=== PATIENT | male | born 1955 | race American Indian/Alaskan Native ===

== ENCOUNTER 2017-12-10 08:26 | Inpatient (IN) | payer MEDICARE ==
[2017-12-10] MEDS ORDERED: NACL 0.9% 1000 ML 1,000 ML IV ONE ×2 (09:08→12:13)
[2017-12-10] MEDS ORDERED: ROCEPHIN/NS 1 GM/50 ML 1 GM/50 ML BAG IV ONE (09:26)
[2017-12-10] MEDS ORDERED: ZOSYN/NS 3.375GM/50ML 3.375 GM/50 ML BAG IV ONE (09:40)
--- NOTE | 2017-12-10 09:46 | Emergency Department Report ---
ED General Adult HPI - General Chief complaint: Pain General Stated complaint: PAIN/BLOODY URINE Time Seen by Provider: 12/10/17 08:48 Source: EMS Mode of arrival: Stretcher Limitations: No Limitations - History of Present Illness Initial comments: This is a 62-year-old diabetic man who presents due to inability to empty his bladder. He has urgency and apparent urinary retention. He is able to tell me that he just was discharged from [facility] on 12/08 and was admitted on . He did have a Hagan catheter during this hospitalization. He states a CT examination showed a bladder tumor. He states he was never seen by a urologist. His Hagan catheter was removed. The above problems ensued. At the time my initial encounter the patient was very desirous of urination. He obviously was suffering from retention. The nurse was directed to place a Hagan catheter. Patient after the Hagan catheter was able to give more history. It seems that he was seen by urologist at [facility]. He was told to follow-up as an outpatient. He states he did appeal his discharge. His Hagan catheter was removed prior to discharge. -: days(s) Location: abdomen (suprapubic) Radiation: non-radiation Severity scale (0 -10): 10 Quality: aching Consistency: constant Improves with: none Worsens with: none Associated Symptoms: denies other symptoms Treatments Prior to Arrival: none - Related Data Allergies Allergy/AdvReac Type Severity Reaction Status Date / Time No Known Allergies Allergy Unverified 12/10/17 09:01 ED Review of Systems ROS: Stated complaint: PAIN/BLOODY URINE Other details as noted in HPI ED Past Medical Hx - Past Medical History Previous Medical History?: Yes Hx Hypertension: Yes (1992) Hx Diabetes: Yes Additional medical history: "enlarged heart," neuropathy - Surgical History Past Surgical History?: Yes Additional Surgical History: bilateral feet surgery with bone removal; right index finger amputation; 2nd left toe ampuation - Social History Smoking Status: Former Smoker Substance Use Type: None ED Physical Exam - General Limitations: Physical Limitation General appearance: in distress (needing to urinate), obese - Head Head exam: Present: atraumatic, normocephalic - Eye Eye exam: Present: normal appearance. Absent: scleral icterus - ENT ENT exam: Present: mucous membranes moist - Neck Neck exam: Present: normal inspection. Absent: tenderness, meningismus - Respiratory Respiratory exam: Present: normal lung sounds bilaterally. Absent: respiratory distress - Cardiovascular Cardiovascular Exam: Present: regular rate, normal rhythm. Absent: systolic murmur, diastolic murmur, rubs, gallop - Extremities Exam Extremities exam: Present: other (dressing from recent amputation. Other amputation sites clean.) - Back Exam Back exam: Present: normal inspection. Absent: CVA tenderness (R), CVA tenderness (L) - Neurological Exam Neurological exam: Present: oriented X3, CN II-XII intact. Absent: motor sensory deficit (no acute focal deficit) - Psychiatric Psychiatric exam: Present: normal mood, anxious ED Course Vital Signs 12/10/17 08:43 Temperature 97.7 F Pulse Rate 92 H Respiratory 20 Rate Blood Pressure 139/69 Blood Pressure 138/69 [Right] O2 Sat by Pulse 98 Oximetry - Reevaluation(s) Reevaluation #1: The patient is given a fluid bolus for sepsis and prerenal azotemia. It is presumed that his source is urinary. He is diabetic. Zosyn and vancomycin were given empirically prior. Urinalysis is yet pending. A CT of the abdomen showed cholelithiasis probably but no intra-abdominal inflammatory process. There was blood in the bladder. The patient will be admitted to the hospitalist service for further care and evaluation. 12/10/17 12:13 ED Medical Decision Making - Lab Data Result diagrams: 12/10/17 09:40 12/10/17 09:40 Laboratory Results - last 24 hr 12/10/17 12/10/17 12/10/17 09:40 09:40 09:40 WBC 19.0 H RBC 4.74 Hgb 12.1 Hct 37.3 MCV 79 L MCH 26 L MCHC 32 RDW 17.3 H Plt Count 526 H Lymph % (Auto) 20.0 [place] % (Auto) 7.1 Eos % (Auto) 0.4 Baso % (Auto) 1.1 Lymph # 3.8 [place] # 1.3 H Eos # 0.1 Baso # 0.2 H Seg Neutrophils % 71.4 H Seg Neutrophils # 13.6 H PT 13.1 INR 0.95 APTT 29.3 Sodium 139 Potassium 4.8 Chloride 99.3 Carbon Dioxide 23 Anion Gap 22 BUN 61 H Creatinine 2.1 H Estimated GFR 39 BUN/Creatinine Ratio 29 Glucose 71 L Lactic Acid Calcium 10.0 Magnesium Total Bilirubin 0.40 AST 38 ALT 31 Alkaline Phosphatase 93 Total Protein 9.2 H Albumin 4.6 Albumin/Globulin Ratio 1.0 12/10/17 12/10/17 09:40 09:40 WBC RBC Hgb Hct MCV MCH MCHC RDW Plt Count Lymph % (Auto) [place] % (Auto) Eos % (Auto) Baso % (Auto) Lymph # [place] # Eos # Baso # Seg Neutrophils % Seg Neutrophils # PT INR APTT Sodium Potassium Chloride Carbon Dioxide Anion Gap BUN Creatinine Estimated GFR BUN/Creatinine Ratio Glucose Lactic Acid 2.70 H* Calcium Magnesium 2.20 Total Bilirubin AST ALT Alkaline Phosphatase Total Protein Albumin Albumin/Globulin Ratio Laboratory Results - last 24 hr 12/10/17 12/10/17 12/10/17 09:40 09:40 09:40 WBC 19.0 H RBC 4.74 Hgb 12.1 Hct 37.3 MCV 79 L MCH 26 L MCHC 32 RDW 17.3 H Plt Count 526 H Lymph % (Auto) 20.0 [place] % (Auto) 7.1 Eos % (Auto) 0.4 Baso % (Auto) 1.1 Lymph # 3.8 [place] # 1.3 H Eos # 0.1 Baso # 0.2 H Seg Neutrophils % 71.4 H Seg Neutrophils # 13.6 H PT 13.1 INR 0.95 APTT 29.3 Sodium 139 Potassium 4.8 Chloride 99.3 Carbon Dioxide 23 Anion Gap 22 BUN 61 H Creatinine 2.1 H Estimated GFR 39 BUN/Creatinine Ratio 29 Glucose 71 L Lactic Acid Calcium 10.0 Magnesium Total Bilirubin 0.40 AST 38 ALT 31 Alkaline Phosphatase 93 Total Protein 9.2 H Albumin 4.6 Albumin/Globulin Ratio 1.0 12/10/17 12/10/17 09:40 09:40 WBC RBC Hgb Hct MCV MCH MCHC RDW Plt Count Lymph % (Auto) [place] % (Auto) Eos % (Auto) Baso % (Auto) Lymph # [place] # Eos # Baso # Seg Neutrophils % Seg Neutrophils # PT INR APTT Sodium Potassium Chloride Carbon Dioxide Anion Gap BUN Creatinine Estimated GFR BUN/Creatinine Ratio Glucose Lactic Acid 2.70 H* Calcium Magnesium 2.20 Total Bilirubin AST ALT Alkaline Phosphatase Total Protein Albumin Albumin/Globulin Ratio Critical Care Time: Yes Critical care time in (mins) excluding proc time.: 55 Critical care attestation.: If time is entered above; I have spent that time in minutes in the direct care of this critically ill patient, excluding procedure time. ED Disposition Clinical Impression: Prerenal azotemia, Acute renal injury Sepsis Qualifiers: Sepsis type: sepsis due to unspecified organism Qualified Code(s): A41.9 - Sepsis, unspecified organism Hematuria Qualifiers: Hematuria type: gross Qualified Code(s): R31.0 - Gross hematuria Type 2 diabetes mellitus Qualifiers: Diabetes mellitus skilled nursing insulin use: without marine oil terminal superintendent use Diabetes mellitus complication status: without complication Qualified Code(s): E11.9 - Type 2 diabetes mellitus without complications Disposition: 09 OP ADMIT IP TO THIS HOSP Is pt being admited?: Yes Does the pt Need Aspirin: Yes Condition: Stable Instructions: Diabetes Mellitus Type 2 in Adults (ED) Time of Disposition: 12:15
[2017-12-10] MEDS ORDERED: VANCOMYCIN 2,000 MG in NACL 0.9% 500 ML 500 ML IV ONE (10:00)
[2017-12-10] MEDS ORDERED: VANCOMYCIN PHARMACY TO DOSE IV SCH (10:00)
[2017-12-10 10:05] LABS: Basophils # (Auto) 0.2 K/mm3 (0.0-0.1); Basophils % (Auto) 1.1 % (0.0-1.8); Eosinophils # (Auto) 0.1 K/mm3 (0.0-0.4); Eosinophils % (Auto) 0.4 % (0.0-4.3); Hematocrit 37.3 % (35.5-45.6); Hemoglobin 12.1 gm/dl (11.8-15.2); Lymphocytes # (Auto) 3.8 K/mm3 (1.2-5.4); Mean Corpuscular HGB Conc 32 % (32-34); Mean Corpuscular Volume 79 fl (84-94); Monocytes # (Auto) 1.3 K/mm3 (0.0-0.8); Monocytes % (Auto) 7.1 % (0.0-7.3); Platelet Count 526 K/mm3 (140-440); Red Blood Count 4.74 M/mm3 (3.65-5.03); Red Cell Distribution Width 17.3 % (13.2-15.2)
[2017-12-10 10:15] LABS: INR 0.95 (0.87-1.13)
[2017-12-10 10:16] LABS: Partial Thromboplastin Time 29.3 Sec. (24.2-36.6)
[2017-12-10] MEDS ORDERED: ZOFRAN IV ONE ×2 (10:23→10:34)
[2017-12-10] MEDS ORDERED: MORPHINE IV ONE ×2 (10:23→10:34)
[2017-12-10] MEDS ORDERED: ZOFRAN ONE (10:26)
[2017-12-10] MEDS ORDERED: MORPHINE ONE (10:26)
[2017-12-10 10:34] LABS: Mean Corpuscular Hemoglobin 26 pg (28-32)
--- NOTE | 2017-12-10 10:36 | Cat Scan Report ---
FINAL REPORT EXAM: CT ABDOMEN PELVIS WO CON HISTORY: abd pain TECHNIQUE: Noncontrast CT of the abdomen and pelvis performed. No IV or gastrointestinal contrast was administered. PRIORS: None. FINDINGS: There is some dependent atelectasis at the lung bases. Within the limitations of a non-enhanced study, the visualized liver, spleen, pancreas, adrenal glands and kidneys demonstrate no significant abnormalities. There are no renal stones, ureteral stones, hydronephrosis, or evidence of obstructive uropathy. There is likely cholelithiasis. There are aortoiliac atherosclerotic calcifications. There is no abdominal aortic aneurysm. There is no evidence of intestinal obstruction. The appendix is normal. There are no abnormal fluid collections seen. There is blood seen within the bladder. Source is unknown. No abnormal pelvic mass or fluid collections seen. IMPRESSION: There is blood in the bladder. Source unknown. There is no nephrolithiasis, hydronephrosis or other evidence for acute obstructive uropathy. Probable cholelithiasis.
[2017-12-10 10:46] LABS: Albumin 4.6 g/dL (3.9-5)
[2017-12-10] MEDS ORDERED: NACL 0.9% IR SCH (11:00)
[2017-12-10] MEDS: ZOSYN/NS 3.375GM/50ML 3.375 GM/50 ML BAG IV SCH ×2 (11:02→18:17)
[2017-12-10 12:14] LABS: Bilirubin,Urine NEG (Negative); Blood,Urine MOD (Negative); Color,Urine Red (Yellow); Urobilinogen,Urine < 2.0 mg/dL (<2.0)
[2017-12-10] MEDS ORDERED: BABY ASPIRIN PO ONE (12:16)
[2017-12-10 12:44] LABS: RBC,Urine > 182.0 /HPF (0.0-6.0)
--- NOTE | 2017-12-10 13:08 | XRay Report ---
FINAL REPORT EXAM: XR CHEST 1V AP HISTORY: hypertension TECHNIQUE: Frontal chest x-ray Comparison: Lung bases from CT same day FINDINGS: Heart size is upper limits normal with left ventricular configuration compatible with systemic hypertension. There are fine reticular infiltrates bilaterally. No definite pleural effusion. IMPRESSION: Left ventricular configuration of the heart compatible with systemic hypertension. Fine reticular infiltrates bilaterally best appreciated on the CT, uncertain chronicity. Recommend follow-up two view chest.
--- NOTE | 2017-12-10 16:57 | History and Physical Report ---
History of Present Illness Date of examination: 12/10/17 Date of admission: 12/10/17 13:51 Chief complaint: Chief complaint: Blood in the urine History of present illness: History of Present Illness: 62-year-old black male with history of hypertension insulin-dependent diabetes coronary artery disease and hyperlipidemia comes in for difficulty urinating and severe pain in the suprapubic region. Patient says that he is unable to empty his bladder. Patient was recently discharged on from [facility] after being treated for urinary retention. Patient had a Hagan catheter during his Hospitalization. Also patient was diagnosed with a bladder tumor on CT examination. Patient was never seen by a urologist. Patient's Hagan catheter was removed. Patient continued to have difficulty urinating and today noticed to have blood in the urine. Patient says the blood in the urine may be there for last 48 hours. No fever no chills. Pain is about 6 on a scale of 1-10 in the suprapubic region. Past Medical History Previous Medical History?: Yes Hx Hypertension: Yes (1992) Hx Diabetes: Yes Additional medical history: "enlarged heart," neuropathy - Surgical History Past Surgical History?: Yes Additional Surgical History: bilateral feet surgery with bone removal; right index finger amputation; 2nd left toe ampuation - Social History Smoking Status: Former Smoker Substance Use Type: None Family history Hypertension Review of Systems ROS: Stated complaint: PAIN/BLOODY URINE Other details as noted in HPI Medications and Allergies Allergies Allergy/AdvReac Type Severity Reaction Status Date / Time No Known Allergies Allergy Unverified 12/10/17 09:01 Home Medications Medication Instructions Recorded Confirmed Last Taken Type Allopurinol 300 mg PO DAILY 12/10/17 12/10/17 Unknown History Aspirin [Aspir-Low] 81 mg PO DAILY 12/10/17 12/10/17 12/10/17 History AtorvaSTATin [Lipitor] 80 mg PO DAILY 12/10/17 12/10/17 Unknown History Carvedilol [Coreg] 12.5 mg PO BID 12/10/17 12/10/17 Unknown History Clopidogrel [Plavix] 75 mg PO BID 12/10/17 12/10/17 Unknown History Ferrous Sulfate [Iron] 325 mg PO BID 12/10/17 12/10/17 Unknown History Furosemide [Lasix TAB] 40 mg PO DAILY 12/10/17 12/10/17 Unknown History Gabapentin [Neurontin] 600 mg PO TID 12/10/17 12/10/17 Unknown History Humulin R U-500 Kwikpen 50 units SUB-Q 12/10/17 12/10/17 Unknown History Insulin Glargine,Hum.rec.anlog 10 units SUB-Q QHS 12/10/17 12/10/17 Unknown History [Lantus] Insulin Regular, Human [HumuLIN R] 50 units SUB-Q 12/10/17 12/10/17 Unknown History Losartan/Hydrochlorothiazide 1 tab PO DAILY 12/10/17 12/10/17 Unknown History [Losartan-Hctz 100-25 mg Tab] Nitroglycerin [Nitrostat] 0.4 mg SL Q5M PRN 12/10/17 12/10/17 Unknown History Nortriptyline [Pamelor] 50 mg PO QHS 12/10/17 12/10/17 Unknown History [place]-3 Acid Ethyl Esters [Lovaza] 1 gram PO BID 12/10/17 12/10/17 Unknown History Sennosides [Senna] 2 tab PO BID PRN 12/10/17 12/10/17 Unknown History True Metrix Glucose Test Strip 4 strip QID 12/10/17 12/10/17 Unknown History Active Meds: Active Medications Sodium Chloride (Nacl 0.9% 1000 Ml) 1,000 mls @ 125 mls/hr IV ONCE ONE Stop: 12/10/17 17:07 Last Admin: 12/10/17 11:02 Dose: 125 mls/hr Piperacillin Sod/Tazobactam Sod (Zosyn/Ns 3.375gm/50ml) 3.375 gm in 50 mls @ 100 mls/hr IV Q6HR HANNAH; Protocol Last Admin: 12/10/17 11:02 Dose: 100 mls/hr Vancomycin HCl 2,000 mg/ (Sodium Chloride) 520 mls @ 250 mls/hr IV Q24H HANNAH Sodium Chloride (Nacl 0.9%) 2,000 ml IR DIRECT HANNAH Last Admin: 12/10/17 11:30 Dose: 2,000 ml Vancomycin HCl (Vancomycin Pharmacy To Dose) 1 each IV PKCONSULT HANNAH; Protocol Exam - Physical Exam Narrative exam: Patient lying in bed comfortably, answering questions appropriately - Constitutional Vitals: Temp Pulse Resp BP Pulse Ox 97.7 F 73 18 154/58 100 12/10/17 08:43 12/10/17 14:30 12/10/17 14:30 12/10/17 14:30 12/10/17 14:30 General appearance: Present: no acute distress, well-nourished - EENT Eyes: Present: PERRL ENT: hearing intact, clear oral mucosa - Neck Neck: Present: supple, normal ROM - Respiratory Respiratory effort: normal Respiratory: bilateral: CTA - Cardiovascular Heart rate: 78 Rhythm: regular Heart Sounds: Present: S1 & S2. Absent: rub, click - Extremities Extremities: no ischemia, pulses intact, pulses symmetrical, No edema Extremity abnormal: other (left second toe status post amputation) Peripheral Pulses: within normal limits - Abdominal General gastrointestinal: Present: soft, non-tender, non-distended, normal bowel sounds Male genitourinary: Present: normal - Rectal Rectal Exam: deferred - Integumentary Integumentary: Present: clear, warm, dry - Musculoskeletal Musculoskeletal: gait normal, strength equal bilaterally - Psychiatric Psychiatric: appropriate mood/affect, intact judgment & insight - Neurologic Neurologic: CNII-XII intact, moves all extremities - Allied Health Allied health notes reviewed: nursing, case management Results - Labs CBC & Chem 7: 12/10/17 09:40 12/10/17 09:40 Labs: Laboratory Last Values WBC 19.0 K/mm3 (4.5-11.0) H 12/10/17 09:40 RBC 4.74 M/mm3 (3.65-5.03) 12/10/17 09:40 Hgb 12.1 gm/dl (11.8-15.2) 12/10/17 09:40 Hct 37.3 % (35.5-45.6) 12/10/17 09:40 MCV 79 fl (84-94) L 12/10/17 09:40 MCH 26 pg (28-32) L 12/10/17 09:40 MCHC 32 % (32-34) 12/10/17 09:40 RDW 17.3 % (13.2-15.2) H 12/10/17 09:40 Plt Count 526 K/mm3 (140-440) H 12/10/17 09:40 Lymph % (Auto) 20.0 % (13.4-35.0) 12/10/17 09:40 [place] % (Auto) 7.1 % (0.0-7.3) 12/10/17 09:40 Eos % (Auto) 0.4 % (0.0-4.3) 12/10/17 09:40 Baso % (Auto) 1.1 % (0.0-1.8) 12/10/17 09:40 Lymph # 3.8 K/mm3 (1.2-5.4) 12/10/17 09:40 [place] # 1.3 K/mm3 (0.0-0.8) H 12/10/17 09:40 Eos # 0.1 K/mm3 (0.0-0.4) 12/10/17 09:40 Baso # 0.2 K/mm3 (0.0-0.1) H 12/10/17 09:40 Seg Neutrophils % 71.4 % (40.0-70.0) H 12/10/17 09:40 Seg Neutrophils # 13.6 K/mm3 (1.8-7.7) H 12/10/17 09:40 PT 13.1 Sec. (12.2-14.9) 12/10/17 09:40 INR 0.95 (0.87-1.13) 12/10/17 09:40 APTT 29.3 Sec. (24.2-36.6) 12/10/17 09:40 Sodium 139 mmol/L (137-145) 12/10/17 09:40 Potassium 4.8 mmol/L (3.6-5.0) 12/10/17 09:40 Chloride 99.3 mmol/L (98-107) 12/10/17 09:40 Carbon Dioxide 23 mmol/L (22-30) 12/10/17 09:40 Anion Gap 22 mmol/L 12/10/17 09:40 BUN 61 mg/dL (9-20) H 12/10/17 09:40 Creatinine 2.1 mg/dL (0.8-1.5) H 12/10/17 09:40 Estimated GFR 39 ml/min 12/10/17 09:40 BUN/Creatinine Ratio 29 % 12/10/17 09:40 Glucose 71 mg/dL (75-100) L 12/10/17 09:40 Lactic Acid 1.40 mmol/L (0.7-2.0) 12/10/17 11:54 Calcium 10.0 mg/dL (8.4-10.2) 12/10/17 09:40 Magnesium 2.20 mg/dL (1.7-2.3) 12/10/17 09:40 Total Bilirubin 0.40 mg/dL (0.1-1.2) 12/10/17 09:40 AST 38 units/L (5-40) 12/10/17 09:40 ALT 31 units/L (7-56) 12/10/17 09:40 Alkaline Phosphatase 93 units/L (35-129) 12/10/17 09:40 Total Protein 9.2 g/dL (6.3-8.2) H 12/10/17 09:40 Albumin 4.6 g/dL (3.9-5) 12/10/17 09:40 Albumin/Globulin Ratio 1.0 % 12/10/17 09:40 Urine Color Red (Yellow) 12/10/17 11:56 Urine Turbidity Clear (Clear) 12/10/17 11:56 Urine pH 5.0 (5.0-7.0) 12/10/17 11:56 Ur Specific [place] 1.016 (1.003-1.030) 12/10/17 11:56 Urine Protein 100 mg/dl mg/dL (Negative) 12/10/17 11:56 Urine Glucose (UA) 50 mg/dL (Negative) 12/10/17 11:56 Urine Ketones Tr mg/dL (Negative) 12/10/17 11:56 Urine Blood Mod (Negative) 12/10/17 11:56 Urine Nitrite Neg (Negative) 12/10/17 11:56 Urine Bilirubin Neg (Negative) 12/10/17 11:56 Urine Urobilinogen < 2.0 mg/dL (<2.0) 12/10/17 11:56 Ur Leukocyte Esterase Neg (Negative) 12/10/17 11:56 Urine WBC (Auto) 22.0 /HPF (0.0-6.0) H 12/10/17 11:56 Urine RBC (Auto) > 182.0 /HPF (0.0-6.0) 12/10/17 11:56 Short CBC 07/22/18 Range/Units 09:40 WBC 19.0 H (4.5-11.0) K/mm3 Hgb 12.1 (11.8-15.2) gm/dl Hct 37.3 (35.5-45.6) % Plt Count 526 H (140-440) K/mm3 BMP 12/10/17 09:40 Sodium 139 Potassium 4.8 Chloride 99.3 Carbon Dioxide 23 BUN 61 H Creatinine 2.1 H Glucose 71 L Calcium 10.0 Liver Function 12/10/17 Range/Units 09:40 Total Bilirubin 0.40 (0.1-1.2) mg/dL AST 38 (5-40) units/L ALT 31 (7-56) units/L Alkaline Phosphatase 93 (35-129) units/L Albumin 4.6 (3.9-5) g/dL Urine 12/10/17 Range/Units 11:56 Urine Color Red (Yellow) Urine pH 5.0 (5.0-7.0) Ur Specific [place] 1.016 (1.003-1.030) Urine Protein 100 mg/dl (Negative) mg/dL Urine Glucose (UA) 50 (Negative) mg/dL - Imaging and Cardiology Chest x-ray: report reviewed Imaging and Cardiology: CT abdomen and pelvis IMPRESSION: There is blood in the bladder. Source unknown. There is no nephrolithiasis, hydronephrosis or other evidence for acute obstructive uropathy. Probable cholelithiasis. Chest x-ray IMPRESSION: Left ventricular configuration of the heart compatible with systemic hypertension. Fine reticular infiltrates bilaterally best appreciated on the CT, uncertain chronicity. Recommend follow-up two view chest. Assessment and Plan Advance Directives: Yes (full code) VTE prophylaxis?: Mechanical Plan of care discussed with patient/family: Yes - Patient Problems (1) Sepsis Current Visit: Yes Status: Acute Qualifiers: Sepsis type: sepsis due to unspecified organism Qualified Code(s): A41.9 - Sepsis, unspecified organism Plan to address problem: Patient has a high white count and urinary tract infection. No hypotension. Will treat as sepsis. Patient started on IV Rocephin and vancomycin. Pending urine cultures (2) Acute kidney injury Current Visit: Yes Status: Acute Plan to address problem: IV fluids for now Nephrology consult if necessary (3) Urinary tract infection Current Visit: Yes Status: Acute Plan to address problem: Patient initiated on IV Rocephin pending urine cultures (4) Hematuria Current Visit: Yes Status: Acute Qualifiers: Hematuria type: gross Qualified Code(s): R31.0 - Gross hematuria Plan to address problem: Rule out bladder tumor Urology consult requested for possible cystoscopy CT abdomen and pelvis did not mention any bladder tumor (5) Hypertension Current Visit: Yes Status: Chronic Qualifiers: Hypertension type: essential hypertension Qualified Code(s): I10 - Essential (primary) hypertension Plan to address problem: Continue antihypertensives (6) Insulin dependent diabetes mellitus Current Visit: Yes Status: Chronic Plan to address problem: continue home insulin and coverage Check hemoglobin A1c (7) Peripheral neuropathy Current Visit: Yes Status: Chronic Qualifiers: Peripheral neuropathy type: polyneuropathy, unspecified Qualified Code(s): G62.9 - Polyneuropathy, unspecified Plan to address problem: Continue gabapentin (8) Hyperlipidemia Current Visit: Yes Status: Chronic Qualifiers: Hyperlipidemia type: mixed hyperlipidemia Qualified Code(s): E78.2 - Mixed hyperlipidemia Plan to address problem: continue statins (9) Gout Current Visit: Yes Status: Inactive Qualifiers: Gout site: unspecified site Presence of tophus: without tophus Plan to address problem: continue allopurinol to prevent gout attacks (10) Coronary artery disease Current Visit: Yes Status: Chronic Qualifiers: Coronary Disease-Associated Artery/Lesion type: [place] artery [place] vs. transplanted heart: [place] heart Plan to address problem: continue Plavix (11) DVT prophylaxis Current Visit: Yes Status: Acute Plan to address problem: Only SCDs for now
[2017-12-10] MEDS ORDERED: NITROSTAT SL PRN (17:47)
[2017-12-10] MEDS ORDERED: ZYLOPRIM PO SCH (18:00)
[2017-12-10] MEDS ORDERED: NON-FORMULARY (Losartan/Hydrochlorothiazide [Losartan-Hctz 100-25 Mg Tab] 1 TAB) PO SCH (18:00)
[2017-12-10] MEDS: FEOSOL PO SCH (21:50)
[2017-12-10] MEDS: NEURONTIN PO SCH (21:50)
[2017-12-10] MEDS: COZAAR PO SCH (21:51)
[2017-12-10] MEDS: COREG PO SCH (21:52)
[2017-12-10] MEDS: HCTZ PO SCH (21:53)
[2017-12-10] MEDS ORDERED: PLAVIX PO SCH (22:00)
[2017-12-10] MEDS: ROCEPHIN/NS 1 GM/50 ML 1 GM/50 ML BAG IV SCH (22:23)
[2017-12-10] MEDS: NACL 0.9% 1000 ML 1,000 ML IV SCH (22:24)
[2017-12-10] MEDS: MORPHINE IV PRN (22:34)
[2017-12-11] MEDS: HumaLOG SUB-Q SCH ×5 (00:40→22:25)
[2017-12-11] MEDS: LANTUS SUB-Q SCH ×2 (00:41→22:24)
[2017-12-11] MEDS ORDERED: NACL 0.9% IR PRN (01:03)
[2017-12-11] MEDS: MORPHINE IV PRN ×2 (03:20→07:26)
[2017-12-11] MEDS: PAMELOR PO SCH ×2 (05:24→22:25)
[2017-12-11 06:23] LABS: Basophils # (Auto) 0.1 K/mm3 (0.0-0.1); Basophils % (Auto) 0.8 % (0.0-1.8); Eosinophils # (Auto) 0.1 K/mm3 (0.0-0.4); Hematocrit 34.3 % (35.5-45.6); Hemoglobin 10.8 gm/dl (11.8-15.2); Lymphocytes # (Auto) 3.1 K/mm3 (1.2-5.4); Lymphocytes % (Auto) 22.1 % (13.4-35.0); Mean Corpuscular HGB Conc 32 % (32-34); Mean Corpuscular Hemoglobin 25 pg (28-32); Mean Corpuscular Volume 79 fl (84-94); Monocytes # (Auto) 1.1 K/mm3 (0.0-0.8); Platelet Count 427 K/mm3 (140-440); Red Blood Count 4.34 M/mm3 (3.65-5.03); Red Cell Distribution Width 16.8 % (13.2-15.2)
[2017-12-11 06:30] LABS: Calcium 9.2 mg/dL (8.4-10.2)
[2017-12-11] MEDS ORDERED: INSULIN REGULAR SUB-Q SCH (07:30)
[2017-12-11] MEDS ORDERED: VANCOMYCIN PHARMACY TO DOSE IV SCH (08:00)
[2017-12-11] MEDS: NACL 0.9% 1000 ML 1,000 ML IV SCH (08:50)
[2017-12-11] MEDS: VANCOMYCIN 2,000 MG in NACL 0.9% 500 ML 500 ML IV SCH (08:51)
[2017-12-11] MEDS: NEURONTIN PO SCH ×3 (09:20→22:24)
[2017-12-11] MEDS: HumuLIN R SUB-Q SCH ×3 (09:20→18:30)
--- NOTE | 2017-12-11 09:25 | Anesthesia Consultation ---
Anesthesia Consult and Med Hx Date of service: 12/11/17 - Airway Anesthetic Teeth Evaluation: Poor ROM Head & Neck: Adequate Mental/Hyoid Distance: Adequate Mallampati Class: Class II Intubation Access Assessment: Probably Good - Pulmonary Exam CTA: Yes - Cardiac Exam Cardiac Exam: RRR - Pre-Operative Health Status ASA Pre-Surgery Classification: ASA3 Proposed Anesthetic Plan: General - Pulmonary Hx Smoking: Yes (former smoker) Hx Asthma: No COPD: No Hx Pneumonia: No Hx Sleep Apnea: Yes (Does not use CPAP) - Cardiovascular System Hx Hypertension: Yes Hx Heart Attack/AMI: No Hx Angina: No Hx Pacemaker: No - Central Nervous System Hx Neuromuscular Disorder: Yes (neuropathy BLE) - Gastrointestinal Hx Gastroesophageal Reflux Disease: No - Endocrine Hx Renal Disease: No Hx End Stage Renal Disease: No Hx Insulin Dependent Diabetes: Yes - Hematic Hx Anemia: No Hx Sickle Cell Disease: No - Other Systems Hx Alcohol Use: No Hx Substance Use: No Hx Cancer: Yes Hx Obesity: Yes (BMI 35.5)
[2017-12-11] MEDS ORDERED: HumuLIN R IV SCH (09:34)
[2017-12-11] MEDS ORDERED: VANCOMYCIN 2,000 MG in NACL 0.9% 500 ML 500 ML IV SCH (10:00)
--- NOTE | 2017-12-11 10:10 | Progress Note ---
Assessment and Plan retention clot irrigated \ for cysto consuklt dictated Subjective Date of service: 12/11/17 Principal diagnosis: hematuria Objective - Constitutional Vitals: Vital Signs - 12hr 12/10/17 12/11/17 12/11/17 23:25 05:18 09:17 Temperature 98.3 F 97.6 F 97.5 F L Pulse Rate 69 70 Respiratory 20 18 20 Rate Blood Pressure 159/65 112/46 143/67 O2 Sat by Pulse 99 100 Oximetry General appearance: Present: severe distress - Labs CBC & Chem 7: 12/11/17 06:03 12/11/17 06:03 Labs: Abnormal lab results 12/10/17 12/10/17 12/10/17 Range/Units 09:40 09:40 09:40 WBC 19.0 H (4.5-11.0) K/mm3 Hgb (11.8-15.2) gm/dl Hct (35.5-45.6) % MCV 79 L (84-94) fl MCH 26 L (28-32) pg RDW 17.3 H (13.2-15.2) % Plt Count 526 H (140-440) K/mm3 [place] % (Auto) (0.0-7.3) % [place] # (0.0-0.8) K/mm3 Seg Neutrophils # (1.8-7.7) K/mm3 BUN 61 H (9-20) mg/dL Creatinine 2.1 H (0.8-1.5) mg/dL Glucose 71 L (75-100) mg/dL POC Glucose (70-105) Hemoglobin A1c (4-6) % Lactic Acid 2.70 H* (0.7-2.0) mmol/L Total Protein 9.2 H (6.3-8.2) g/dL Urine WBC (Auto) (0.0-6.0) /HPF 12/10/17 12/10/17 12/10/17 Range/Units 11:56 17:11 22:07 WBC (4.5-11.0) K/mm3 Hgb (11.8-15.2) gm/dl Hct (35.5-45.6) % MCV (84-94) fl MCH (28-32) pg RDW (13.2-15.2) % Plt Count (140-440) K/mm3 [place] % (Auto) (0.0-7.3) % [place] # (0.0-0.8) K/mm3 Seg Neutrophils # (1.8-7.7) K/mm3 BUN (9-20) mg/dL Creatinine (0.8-1.5) mg/dL Glucose (75-100) mg/dL POC Glucose 106 H 162 H (70-105) Hemoglobin A1c (4-6) % Lactic Acid (0.7-2.0) mmol/L Total Protein (6.3-8.2) g/dL Urine WBC (Auto) 22.0 H (0.0-6.0) /HPF 12/11/17 12/11/17 12/11/17 Range/Units 05:35 06:03 06:03 WBC (4.5-11.0) K/mm3 Hgb (11.8-15.2) gm/dl Hct (35.5-45.6) % MCV (84-94) fl MCH (28-32) pg RDW (13.2-15.2) % Plt Count (140-440) K/mm3 [place] % (Auto) (0.0-7.3) % [place] # (0.0-0.8) K/mm3 Seg Neutrophils # (1.8-7.7) K/mm3 BUN 49 H (9-20) mg/dL Creatinine 1.7 H (0.8-1.5) mg/dL Glucose 201 H (75-100) mg/dL POC Glucose 170 H (70-105) Hemoglobin A1c 8.6 H (4-6) % Lactic Acid (0.7-2.0) mmol/L Total Protein (6.3-8.2) g/dL Urine WBC (Auto) (0.0-6.0) /HPF 12/11/17 12/11/17 12/11/17 Range/Units 06:03 08:21 09:32 WBC 13.8 H (4.5-11.0) K/mm3 Hgb 10.8 L (11.8-15.2) gm/dl Hct 34.3 L (35.5-45.6) % MCV 79 L (84-94) fl MCH 25 L (28-32) pg RDW 16.8 H (13.2-15.2) % Plt Count (140-440) K/mm3 [place] % (Auto) 8.0 H (0.0-7.3) % [place] # 1.1 H (0.0-0.8) K/mm3 Seg Neutrophils # 9.4 H (1.8-7.7) K/mm3 BUN (9-20) mg/dL Creatinine (0.8-1.5) mg/dL Glucose (75-100) mg/dL POC Glucose 219 H 265 H (70-105) Hemoglobin A1c (4-6) % Lactic Acid (0.7-2.0) mmol/L Total Protein (6.3-8.2) g/dL Urine WBC (Auto) (0.0-6.0) /HPF
[2017-12-11] MEDS ORDERED: XYLOCAINE MPF 2% ONE (10:38)
[2017-12-11] MEDS ORDERED: SUBLIMAZE ONE ×2 (10:38→12:01)
[2017-12-11] MEDS ORDERED: ZOFRAN ONE (10:38)
[2017-12-11] MEDS ORDERED: DIPRIVAN 10 MG/ML IV ONE (10:38)
--- NOTE | 2017-12-11 11:17 | Anesthesia Day of Surgery ---
Anesthesia Day of Surgery - Day of Surgery Patient Examined: Yes Patient H&P Reviewed: Yes Patient is NPO: Yes
[2017-12-11] MEDS ORDERED: ePHEDrine SULFATE ONE (11:45)
--- NOTE | 2017-12-11 11:47 | Anesthesia Day of Surgery ---
Anesthesia Day of Surgery - Day of Surgery Patient Examined: Yes Patient H&P Reviewed: Yes Patient is NPO: Yes
[2017-12-11] MEDS ORDERED: WATER FOR IRRIG STERILE IR ONE ×3 (11:48)
[2017-12-11] MEDS ORDERED: OMNIPAQUE 300 MG/50 ML (CATH LAB) IV ONE (11:48)
[2017-12-11] MEDS ORDERED: ZOFRAN IV PRN (11:48)
[2017-12-11] MEDS ORDERED: NACL 0.9% IR ONE (11:48)
--- NOTE | 2017-12-11 11:48 | Anesthesia Consultation ---
Anesthesia Consult and Med Hx Date of service: 12/11/17 - Airway ROM Head & Neck: Adequate Mental/Hyoid Distance: Adequate Mallampati Class: Class III Intubation Access Assessment: Possibly Difficult - Pulmonary Exam CTA: Yes - Cardiac Exam Cardiac Exam: RRR - Pre-Operative Health Status ASA Pre-Surgery Classification: ASA3 Proposed Anesthetic Plan: General - Pulmonary Hx Smoking: Yes (former smoker) Hx Asthma: No COPD: No Hx Pneumonia: No Hx Sleep Apnea: Yes (Does not use CPAP) - Cardiovascular System Hx Hypertension: Yes Hx Heart Attack/AMI: No Hx Angina: No Hx Pacemaker: No - Central Nervous System Hx Neuromuscular Disorder: Yes (neuropathy BLE) - Gastrointestinal Hx Gastroesophageal Reflux Disease: No - Endocrine Hx Renal Disease: No Hx End Stage Renal Disease: No Hx Insulin Dependent Diabetes: Yes - Hematic Hx Anemia: No Hx Sickle Cell Disease: No - Other Systems Hx Alcohol Use: No Hx Substance Use: No Hx Cancer: Yes Hx Obesity: Yes (BMI 35.5)
[2017-12-11] MEDS ORDERED: LASIX ONE (12:46)
--- NOTE | 2017-12-11 12:59 | Post Operative Note ---
Date of procedure: 12/11/17 Pre-op diagnosis: clot retention mass Post-op diagnosis: same Findings: bladder cancer Procedure: evacuation clots cysto rpgs turbt Anesthesia: GETA Surgeon: ALYCIA LAUREN Estimated blood loss: minimal Pathology: list (bladder) Specimen disposition: to lab Condition: stable Disposition: PACU
[2017-12-11] MEDS: ZYLOPRIM PO SCH (13:13)
[2017-12-11] MEDS: COREG PO SCH ×2 (13:13→22:26)
[2017-12-11] MEDS: HCTZ PO SCH (13:14)
[2017-12-11] MEDS: HALFPRIN EC PO SCH (13:14)
[2017-12-11] MEDS: COZAAR PO SCH (13:14)
[2017-12-11] MEDS: LASIX PO SCH (13:14)
[2017-12-11] MEDS: FEOSOL PO SCH ×2 (13:14→22:23)
[2017-12-11] MEDS: PLAVIX PO SCH (13:15)
--- NOTE | 2017-12-11 13:16 | Fluoroscopy Report ---
FLUOROSCOPY RETROGRADE UROGRAPHY: HISTORY: Hematuria. FINDINGS: Fluoroscopy was provided by radiology during retrograde urography by the urologist. 10 fluoroscopic images were captured. There is adequate filling of the ureters and intrarenal collecting systems with no filling defects or anatomic abnormalities identified. Please correlate with the procedural report if needed. IMPRESSION: Retrograde pyelograms within normal limits.
--- NOTE | 2017-12-11 13:35 | Progress Note ---
Assessment and Plan Assessment and plan: 62-year-old black male with history of hypertension insulin-dependent diabetes coronary artery disease and hyperlipidemia comes in for difficulty urinating and severe pain in the suprapubic region. Patient says that he is unable to empty his bladder. Patient was recently discharged on from [facility] after being treated for urinary retention. Patient had a Hagan catheter during his Hospitalization. Also patient was diagnosed with a bladder tumor on CT examination. Patient was never seen by a urologist. Patient's Hagan catheter was removed. Patient continued to have difficulty urinating and on admission noticed to have blood in the urine. Patient says the blood in the urine may be there for last 48 hours. No fever no chills. Pain is about 6 on a scale of 1-10 in the suprapubic region. Castillo's catheter was put Place with urology consult CT abdomen and pelvis Sepsis secondary to acute cystitis Acute cystitis Urinary retention Acute kidney injury secondary to vasomotor nephropathy Bladder mass concerning for malignancy Urinary retention clots Gross hematuria Diabetes mellitus Peripheral neuropathy Hyperlipidemia Gout CAD Plan Supportive care. Urology consult for patient to the OR today. Hagan catheter/Morphis catheter per urology's Follow pathology report. Pain control Continue antibiotics and monitor cultures to help de-escalate DVT and GI prophylaxis Plan of care discussed with patient in detail. History Interval history: Patient seen and examined, still with some pain, going for procedure today. Hospitalist Physical - Physical exam Narrative exam: VITAL SIGNS: Reviewed. GENERAL: The patient appeared well nourished and normally developed. Vital signs as documented. HEAD: No signs of head trauma.obese EYES: Pupils are equal. Extraocular motions intact. EARS: Hearing grossly intact. MOUTH: Oropharynx is normal. NECK: No adenopathy, no JVD. CHEST: Chest with clear breath sounds bilaterally. No wheezes, rales, or rhonchi. CARDIAC: Regular rate and rhythm. S1 and S2, without murmurs, gallops, or rubs. VASCULAR: No Edema. Peripheral pulses normal and equal in all extremities. ABDOMEN: Soft, without detectable tenderness. No sign of distention. No rebound or guarding, and no masses palpated. Bowel Sounds normal. : Suprapubic catheter in place MUSCULOSKELETAL: Good range of motion of all major joints. Extremities without clubbing, cyanosis or edema. 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 No focal sensory or strength deficits. Speech normal. Follows commands. PSYCHIATRIC: Mood normal. SKIN:multiple caluses in the MCP joints - Constitutional Vitals: Temp Pulse Resp BP Pulse Ox 97.5 F L 70 20 143/67 100 12/11/17 09:17 12/11/17 09:17 12/11/17 09:17 12/11/17 09:17 12/11/17 09:17 General appearance: Present: severe distress Results - Labs CBC & Chem 7: 12/12/17 05:50 12/12/17 05:50 Labs: Laboratory Last Values WBC 13.8 K/mm3 (4.5-11.0) H 12/11/17 06:03 RBC 4.34 M/mm3 (3.65-5.03) 12/11/17 06:03 Hgb 10.8 gm/dl (11.8-15.2) L 12/11/17 06:03 Hct 34.3 % (35.5-45.6) L 12/11/17 06:03 MCV 79 fl (84-94) L 12/11/17 06:03 MCH 25 pg (28-32) L 12/11/17 06:03 MCHC 32 % (32-34) 12/11/17 06:03 RDW 16.8 % (13.2-15.2) H 12/11/17 06:03 Plt Count 427 K/mm3 (140-440) 12/11/17 06:03 Lymph % (Auto) 22.1 % (13.4-35.0) 12/11/17 06:03 [place] % (Auto) 8.0 % (0.0-7.3) H 12/11/17 06:03 Eos % (Auto) 1.0 % (0.0-4.3) 12/11/17 06:03 Baso % (Auto) 0.8 % (0.0-1.8) 12/11/17 06:03 Lymph # 3.1 K/mm3 (1.2-5.4) 12/11/17 06:03 [place] # 1.1 K/mm3 (0.0-0.8) H 12/11/17 06:03 Eos # 0.1 K/mm3 (0.0-0.4) 12/11/17 06:03 Baso # 0.1 K/mm3 (0.0-0.1) 12/11/17 06:03 Seg Neutrophils % 68.1 % (40.0-70.0) 12/11/17 06:03 Seg Neutrophils # 9.4 K/mm3 (1.8-7.7) H 12/11/17 06:03 PT 13.1 Sec. (12.2-14.9) 12/10/17 09:40 INR 0.95 (0.87-1.13) 12/10/17 09:40 APTT 29.3 Sec. (24.2-36.6) 12/10/17 09:40 Sodium 138 mmol/L (137-145) 12/11/17 06:03 Potassium 5.0 mmol/L (3.6-5.0) 12/11/17 06:03 Chloride 101.3 mmol/L (98-107) 12/11/17 06:03 Carbon Dioxide 23 mmol/L (22-30) 12/11/17 06:03 Anion Gap 19 mmol/L 12/11/17 06:03 BUN 49 mg/dL (9-20) H 12/11/17 06:03 Creatinine 1.7 mg/dL (0.8-1.5) H 12/11/17 06:03 Estimated GFR 49 ml/min 12/11/17 06:03 BUN/Creatinine Ratio 29 % 12/11/17 06:03 Glucose 201 mg/dL (75-100) H 12/11/17 06:03 POC Glucose 208 (70-105) H 12/11/17 13:23 Hemoglobin A1c 8.6 % (4-6) H 12/11/17 06:03 Lactic Acid 1.40 mmol/L (0.7-2.0) 12/10/17 11:54 Calcium 9.2 mg/dL (8.4-10.2) 12/11/17 06:03 Magnesium 2.20 mg/dL (1.7-2.3) 12/10/17 09:40 Total Bilirubin 0.40 mg/dL (0.1-1.2) 12/10/17 09:40 AST 38 units/L (5-40) 12/10/17 09:40 ALT 31 units/L (7-56) 12/10/17 09:40 Alkaline Phosphatase 93 units/L (35-129) 12/10/17 09:40 Total Protein 9.2 g/dL (6.3-8.2) H 12/10/17 09:40 Albumin 4.6 g/dL (3.9-5) 12/10/17 09:40 Albumin/Globulin Ratio 1.0 % 12/10/17 09:40 Urine Color Red (Yellow) 12/10/17 11:56 Urine Turbidity Clear (Clear) 12/10/17 11:56 Urine pH 5.0 (5.0-7.0) 12/10/17 11:56 Ur Specific [place] 1.016 (1.003-1.030) 12/10/17 11:56 Urine Protein 100 mg/dl mg/dL (Negative) 12/10/17 11:56 Urine Glucose (UA) 50 mg/dL (Negative) 12/10/17 11:56 Urine Ketones Tr mg/dL (Negative) 12/10/17 11:56 Urine Blood Mod (Negative) 12/10/17 11:56 Urine Nitrite Neg (Negative) 12/10/17 11:56 Urine Bilirubin Neg (Negative) 12/10/17 11:56 Urine Urobilinogen < 2.0 mg/dL (<2.0) 12/10/17 11:56 Ur Leukocyte Esterase Neg (Negative) 12/10/17 11:56 Urine WBC (Auto) 22.0 /HPF (0.0-6.0) H 12/10/17 11:56 Urine RBC (Auto) > 182.0 /HPF (0.0-6.0) 12/10/17 11:56 - Imaging and Cardiology CT scan - pelvis: image reviewed (bladder mass noted)
[2017-12-11] MEDS: DILAUDID IV PRN ×4 (13:42→14:21)
--- NOTE | 2017-12-11 14:47 | Operative Report ---
PREOPERATIVE DIAGNOSES: Gross hematuria, clot retention, severe agonizing pain, bladder mass. POSTOPERATIVE DIAGNOSES: Gross hematuria, clot retention, severe agonizing pain, bladder mass. PROCEDURE: Cystoscopy, evacuation of bladder filled with clots, resection of tumor right at the 7 o'clock position of the bladder neck and prostatic urethra with frozen section, cauterization, retrograde. SURGEON: Ganesh Smith MD ANESTHESIA: General. FINDINGS: This gentleman was admitted last night with severe agonizing pain. The catheter was barely draining. We irrigated on the floor, it did give him some relief, what looks like he has a bladder filled with clots. He now presents for cystoscopy. DESCRIPTION OF PROCEDURE: The patient was brought to the operating room and placed on the operating table. Following induction of anesthesia, placed in lithotomy position, prepped and draped in usual sterile fashion. Cystourethroscopy showed a bladder filled with clots. Initially it was hard to get any of the clots out. They were quite large. Could not see the trigone, could not see anything except for the clots. With irrigation, the clots were evacuated out and then we ____. There was no active bleeding, but there was a piece of tissue that came out, we sent for frozen, showed low-grade papillary tumor. I think this came from the bladder neck where there was some papillary lesion which was resected. The patient tolerated the procedure well with no active bleeding at this point retrograde showed severe J hooking, it was very difficult to get the contrast to go up on both sides. We were able to visualize as much as possible and the patient tolerated the procedure well. The irrigation was clear. A 26 three-way was placed. Final pathology is pending, was brought to recovery room in stable condition. JOB# [id number] TONNY/SARAH
--- NOTE | 2017-12-11 15:11 | Consultation ---
HISTORY OF PRESENT ILLNESS: The patient is a 62-year-old gentleman presented to the hospital for hematuria. He was admitted yesterday. He currently was in the hospital at [facility] for 3 days bleeding and was difficulty with his catheter. He also had heart disease and elevated sugars from his diabetes. CT showed a possible bladder mass, though he was not seen by urologist. Catheter was removed. He is having trouble urinating with no bleeding and he is in agony and severe pain. PAST MEDICAL HISTORY: Heart disease, diabetes, hypertension. No history. SOCIAL HISTORY: Smoked years ago, but nothing recently. FAMILY HISTORY: Vascular disease. PAST SURGICAL HISTORY: Lower extremity surgery, finger surgery. ALLERGIES: Negative. MEDICATIONS: Insulin, Plavix, Coreg, Lasix, nitroglycerin. PHYSICAL EXAMINATION: GENERAL: He is awake, alert. He is in severe pain. He is obese. ABDOMEN: Soft, nondistended except for the suprapubic area which was distended to the umbilicus. His bladder is full. He is in severe pain. IMPRESSION: Urinary retention, clots and bleeding. He is on Plavix. We will try to get the clots out. He has got renal failure with a creatinine of 2.1. He is on multiple medications. His hemoglobin is stable for cystoscopy, evacuation of clots. All risks and implications discussed and this may have to be a staged procedure if he is starting to have bleeding, we just want to make him comfortable and then go back when he is off the blood thinners if needed. JOB# [id number] TONNY/SARAH
[2017-12-11] MEDS: ROCEPHIN/NS 1 GM/50 ML 1 GM/50 ML BAG IV SCH (22:23)
[2017-12-12] MEDS: NACL 0.9% 1000 ML 1,000 ML IV SCH ×2 (01:43→13:26)
[2017-12-12] MEDS: NACL 0.9% IR SCH ×6 (01:44→22:47)
[2017-12-12 06:03] LABS: Hematocrit 25.4 % (35.5-45.6); Mean Corpuscular HGB Conc 32 % (32-34); Mean Corpuscular Volume 80 fl (84-94); Platelet Count 279 K/mm3 (140-440); Red Blood Count 3.16 M/mm3 (3.65-5.03)
[2017-12-12 06:16] LABS: Mean Corpuscular Hemoglobin 25 pg (28-32)
[2017-12-12 06:25] LABS: BUN/Creatinine Ratio 33; Blood Urea Nitrogen 23 mg/dL (9-20); Hemolysis Index 1
[2017-12-12 06:42] LABS: Calcium 5.2 mg/dL (8.4-10.2)
[2017-12-12] MEDS: HumuLIN R SUB-Q SCH ×3 (09:13→18:09)
[2017-12-12] MEDS: HumaLOG SUB-Q SCH ×4 (09:14→22:26)
[2017-12-12] MEDS: NEURONTIN PO SCH ×3 (09:15→22:23)
[2017-12-12] MEDS: VANCOMYCIN 2,000 MG in NACL 0.9% 500 ML 500 ML IV SCH (09:33)
[2017-12-12] MEDS ORDERED: MAGNESIUM SULFATE IV ONE (11:14)
[2017-12-12] MEDS ORDERED: SODIUM BICARBONATE IV ONE ×2 (11:14→12:00)
[2017-12-12] MEDS: COZAAR PO SCH (11:35)
[2017-12-12] MEDS: HALFPRIN EC PO SCH (11:36)
[2017-12-12] MEDS: FEOSOL PO SCH ×2 (11:37→22:23)
[2017-12-12] MEDS: PLAVIX PO SCH (11:37)
[2017-12-12] MEDS: HCTZ PO SCH (11:37)
[2017-12-12] MEDS: COREG PO SCH ×2 (11:38→22:25)
[2017-12-12] MEDS: ZYLOPRIM PO SCH (11:39)
[2017-12-12] MEDS: LASIX PO SCH (11:41)
[2017-12-12] MEDS ORDERED: K-DUR PO ONE (12:00)
--- NOTE | 2017-12-12 12:09 | Progress Note ---
Assessment and Plan Assessment and plan: 62-year-old black male with history of hypertension insulin-dependent diabetes coronary artery disease and hyperlipidemia comes in for difficulty urinating and severe pain in the suprapubic region. Patient says that he is unable to empty his bladder. Patient was recently discharged on from [facility] after being treated for urinary retention. Patient had a Hagan catheter during his Hospitalization. Also patient was diagnosed with a bladder tumor on CT examination. Patient was never seen by a urologist. Patient's Hagan catheter was removed. Patient continued to have difficulty urinating and on admission noticed to have blood in the urine. Patient says the blood in the urine may be there for last 48 hours. No fever no chills. Pain is about 6 on a scale of 1-10 in the suprapubic region. Castillo's catheter was put Place with urology consult CT abdomen and pelvis Sepsis secondary to acute cystitis Acute cystitis Urinary retention Acute kidney injury secondary to vasomotor nephropathy Bladder mass concerning for malignancy Urinary retention clots metabolic acidosis hypokalemia, Severe Malnutrition-Protein calorie Gross hematuria Diabetes mellitus Peripheral neuropathy Hyperlipidemia Gout CAD Plan Supportive care. Urology s/p biopsy Hagan catheter/Morphis catheter per urology's Follow pathology report. BG control Repeat BMP. Lab abnormality concerning considering prior days result Pain control Continue antibiotics and monitor cultures to help de-escalate DVT and GI prophylaxis Plan of care discussed with patient in detail. History Interval history: Patient seen and examined, reports improvement in symptoms of pain. still with hematouria Hospitalist Physical - Physical exam Narrative exam: VITAL SIGNS: Reviewed. GENERAL: The patient appeared well nourished and normally developed. Vital signs as documented. HEAD: No signs of head trauma.obese EYES: Pupils are equal. Extraocular motions intact. EARS: Hearing grossly intact. MOUTH: Oropharynx is normal. NECK: No adenopathy, no JVD. CHEST: Chest with clear breath sounds bilaterally. No wheezes, rales, or rhonchi. CARDIAC: Regular rate and rhythm. S1 and S2, without murmurs, gallops, or rubs. VASCULAR: No Edema. Peripheral pulses normal and equal in all extremities. ABDOMEN: Soft, without detectable tenderness. No sign of distention. No rebound or guarding, and no masses palpated. Bowel Sounds normal. : Suprapubic catheter in place MUSCULOSKELETAL: Good range of motion of all major joints. Extremities without clubbing, cyanosis or edema. 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 No focal sensory or strength deficits. Speech normal. Follows commands. PSYCHIATRIC: Mood normal. SKIN:multiple caluses in the MCP joints - Constitutional Vitals: Temp Pulse Resp BP Pulse Ox 98.3 F 61 20 144/60 100 12/12/17 06:05 12/12/17 11:38 12/12/17 06:05 12/12/17 11:38 12/12/17 06:05 General appearance: Present: severe distress Results - Labs CBC & Chem 7: 12/12/17 05:50 12/12/17 05:50 Labs: Laboratory Last Values WBC 9.3 K/mm3 (4.5-11.0) 12/12/17 05:50 RBC 3.16 M/mm3 (3.65-5.03) L 12/12/17 05:50 Hgb 8.0 gm/dl (11.8-15.2) L 12/12/17 05:50 Hct 25.4 % (35.5-45.6) L D 12/12/17 05:50 MCV 80 fl (84-94) L 12/12/17 05:50 MCH 25 pg (28-32) L 12/12/17 05:50 MCHC 32 % (32-34) 12/12/17 05:50 RDW 17.0 % (13.2-15.2) H 12/12/17 05:50 Plt Count 279 K/mm3 (140-440) 12/12/17 05:50 Lymph % (Auto) 22.1 % (13.4-35.0) 12/11/17 06:03 [place] % (Auto) 8.0 % (0.0-7.3) H 12/11/17 06:03 Eos % (Auto) 1.0 % (0.0-4.3) 12/11/17 06:03 Baso % (Auto) 0.8 % (0.0-1.8) 12/11/17 06:03 Lymph # 3.1 K/mm3 (1.2-5.4) 12/11/17 06:03 [place] # 1.1 K/mm3 (0.0-0.8) H 12/11/17 06:03 Eos # 0.1 K/mm3 (0.0-0.4) 12/11/17 06:03 Baso # 0.1 K/mm3 (0.0-0.1) 12/11/17 06:03 Seg Neutrophils % 68.1 % (40.0-70.0) 12/11/17 06:03 Seg Neutrophils # 9.4 K/mm3 (1.8-7.7) H 12/11/17 06:03 PT 13.1 Sec. (12.2-14.9) 12/10/17 09:40 INR 0.95 (0.87-1.13) 12/10/17 09:40 APTT 29.3 Sec. (24.2-36.6) 12/10/17 09:40 Sodium 144 mmol/L (137-145) 12/12/17 05:50 Potassium 3.1 mmol/L (3.6-5.0) L D 12/12/17 05:50 Chloride 117.0 mmol/L (98-107) H 12/12/17 05:50 Carbon Dioxide 16 mmol/L (22-30) L D 12/12/17 05:50 Anion Gap 14 mmol/L 12/12/17 05:50 BUN 23 mg/dL (9-20) H 12/12/17 05:50 Creatinine 0.7 mg/dL (0.8-1.5) L D 12/12/17 05:50 Estimated GFR > 60 ml/min 12/12/17 05:50 BUN/Creatinine Ratio 33 % 12/12/17 05:50 Glucose 147 mg/dL (75-100) H 12/12/17 05:50 POC Glucose 198 (70-105) H 12/12/17 08:17 Hemoglobin A1c 8.6 % (4-6) H 12/11/17 06:03 Lactic Acid 1.40 mmol/L (0.7-2.0) 12/10/17 11:54 Calcium 5.2 mg/dL (8.4-10.2) L* D 12/12/17 05:50 Magnesium 2.20 mg/dL (1.7-2.3) 12/10/17 09:40 Total Bilirubin 0.40 mg/dL (0.1-1.2) 12/10/17 09:40 AST 38 units/L (5-40) 12/10/17 09:40 ALT 31 units/L (7-56) 12/10/17 09:40 Alkaline Phosphatase 93 units/L (35-129) 12/10/17 09:40 Total Protein 9.2 g/dL (6.3-8.2) H 12/10/17 09:40 Albumin 1.8 g/dL (3.9-5) L 12/12/17 05:50 Albumin/Globulin Ratio 1.0 % 12/10/17 09:40 Urine Color Red (Yellow) 12/10/17 11:56 Urine Turbidity Clear (Clear) 12/10/17 11:56 Urine pH 5.0 (5.0-7.0) 12/10/17 11:56 Ur Specific [place] 1.016 (1.003-1.030) 12/10/17 11:56 Urine Protein 100 mg/dl mg/dL (Negative) 12/10/17 11:56 Urine Glucose (UA) 50 mg/dL (Negative) 12/10/17 11:56 Urine Ketones Tr mg/dL (Negative) 12/10/17 11:56 Urine Blood Mod (Negative) 12/10/17 11:56 Urine Nitrite Neg (Negative) 12/10/17 11:56 Urine Bilirubin Neg (Negative) 12/10/17 11:56 Urine Urobilinogen < 2.0 mg/dL (<2.0) 12/10/17 11:56 Ur Leukocyte Esterase Neg (Negative) 12/10/17 11:56 Urine WBC (Auto) 22.0 /HPF (0.0-6.0) H 12/10/17 11:56 Urine RBC (Auto) > 182.0 /HPF (0.0-6.0) 12/10/17 11:56
--- NOTE | 2017-12-12 12:23 | Progress Note ---
Assessment and Plan much improved can be dischaged with manuel to leg bag f/u 1 week path TCC bladder Subjective Date of service: 12/12/17 Principal diagnosis: hematuria Objective - Constitutional Vitals: Vital Signs - 12hr 12/12/17 12/12/17 12/12/17 06:05 11:35 11:38 Temperature 98.3 F Pulse Rate 61 61 61 Respiratory 20 Rate Blood Pressure 144/60 144/60 144/60 O2 Sat by Pulse 100 Oximetry General appearance: Present: no acute distress - Respiratory Respiratory effort: normal Extremities: no ischemia - Gastrointestinal General gastrointestinal: Present: soft, non-tender - Labs CBC & Chem 7: 12/12/17 05:50 12/12/17 05:50 Labs: Abnormal lab results 12/11/17 12/11/17 12/11/17 Range/Units 13:23 17:27 21:48 RBC (3.65-5.03) M/mm3 Hgb (11.8-15.2) gm/dl Hct (35.5-45.6) % MCV (84-94) fl MCH (28-32) pg RDW (13.2-15.2) % Potassium (3.6-5.0) mmol/L Chloride (98-107) mmol/L Carbon Dioxide (22-30) mmol/L BUN (9-20) mg/dL Creatinine (0.8-1.5) mg/dL Glucose (75-100) mg/dL POC Glucose 208 H 220 H 238 H (70-105) Calcium (8.4-10.2) mg/dL Albumin (3.9-5) g/dL 12/12/17 12/12/17 12/12/17 Range/Units 05:50 05:50 05:50 RBC 3.16 L (3.65-5.03) M/mm3 Hgb 8.0 L (11.8-15.2) gm/dl Hct 25.4 L D (35.5-45.6) % MCV 80 L (84-94) fl MCH 25 L (28-32) pg RDW 17.0 H (13.2-15.2) % Potassium 3.1 L D (3.6-5.0) mmol/L Chloride 117.0 H (98-107) mmol/L Carbon Dioxide 16 L D (22-30) mmol/L BUN 23 H (9-20) mg/dL Creatinine 0.7 L D (0.8-1.5) mg/dL Glucose 147 H (75-100) mg/dL POC Glucose (70-105) Calcium 5.2 L* D (8.4-10.2) mg/dL Albumin 1.8 L (3.9-5) g/dL 12/12/17 Range/Units 08:17 RBC (3.65-5.03) M/mm3 Hgb (11.8-15.2) gm/dl Hct (35.5-45.6) % MCV (84-94) fl MCH (28-32) pg RDW (13.2-15.2) % Potassium (3.6-5.0) mmol/L Chloride (98-107) mmol/L Carbon Dioxide (22-30) mmol/L BUN (9-20) mg/dL Creatinine (0.8-1.5) mg/dL Glucose (75-100) mg/dL POC Glucose 198 H (70-105) Calcium (8.4-10.2) mg/dL Albumin (3.9-5) g/dL
[2017-12-12] MEDS ORDERED: MAGNESIUM SULFATE 1 GM in NACL 0.9% 50 ML IV ONE (13:00)
[2017-12-12 14:44] LABS: BUN/Creatinine Ratio 27; Blood Urea Nitrogen 30 mg/dL (9-20); Calcium 8.7 mg/dL (8.4-10.2); Hemolysis Index 0
[2017-12-12] MEDS: ROCEPHIN/NS 1 GM/50 ML 1 GM/50 ML BAG IV SCH (22:22)
[2017-12-12] MEDS: PAMELOR PO SCH (22:24)
[2017-12-12] MEDS: LANTUS SUB-Q SCH (22:27)
[2017-12-13 08:35] LABS: Hematocrit 29.6 % (35.5-45.6); Hemoglobin 9.6 gm/dl (11.8-15.2); Mean Corpuscular HGB Conc 33 % (32-34); Mean Corpuscular Volume 79 fl (84-94); Platelet Count 329 K/mm3 (140-440); Red Blood Count 3.74 M/mm3 (3.65-5.03); Red Cell Distribution Width 16.9 % (13.2-15.2)
--- NOTE | 2017-12-13 08:41 | Discharge Summary ---
Providers - Providers Date of Admission: 12/10/17 13:51 Attending physician: JAMILA GASTELUM MD 12/10/17 19:32 Consult to Physician [CONS] Routine Comment: Consulting Provider: NIKI CRISTINA Physician Instructions: Reason For Exam: Hematuria 12/12/17 11:13 Consult to Dietitian/Nutrition [CONS] Routine Physician Instructions: Reason For Exam: Reason for Consult: Malnutrition Hospitalization Reason for admission: HEMATURIA Condition: Stable Hospital course: 62-year-old black male with history of hypertension insulin-dependent diabetes coronary artery disease and hyperlipidemia comes in for difficulty urinating and severe pain in the suprapubic region. Patient says that he is unable to empty his bladder. Patient was recently discharged on from [facility] after being treated for urinary retention. Patient had a Manuel catheter during his Hospitalization. Also patient was diagnosed with a bladder tumor on CT examination. Patient was never seen by a urologist. Patient's Manuel catheter was removed. Patient continued to have difficulty urinating and on admission noticed to have blood in the urine. Patient says the blood in the urine may be there for last 48 hours. No fever no chills. Pain is about 6 on a scale of 1-10 in the suprapubic region. Castillo's catheter was put Place with urology consult patient proceeded to have a cystolscopy with result showing TCC of the bladder. Full operative report is not available to me at this time and not sure if all mass was removed. The patient will follow with urology. He will follow with Urology for treatment and including referrals to oncology if need be. diabetes education was provided Pain was controlled and patient discharged with manuel to leg bag. Counselling was provided to the patient due to ASA AND PLAVIX USE. Sepsis secondary to acute cystitis Acute cystitis Urinary retention Acute kidney injury secondary to vasomotor nephropathy Bladder mass concerning for malignancy Urinary retention clots metabolic acidosis hypokalemia, Severe Malnutrition-Protein calorie Gross hematuria Diabetes mellitus Peripheral neuropathy Hyperlipidemia Gout CAD Disposition: [id number]/TX-06 HOME UNDER [facility] Time spent for discharge: 35 MINS Core Measure Documentation - Palliative Care Palliative Care/ Comfort Measures: Not Applicable - Core Measures Any of the following diagnoses?: none - VTE Discharge Requirements Deep Vein Thrombosis/Pulmonary Embolism Present on Admission: No Exam - Physical Exam Narrative exam: VITAL SIGNS: Reviewed. GENERAL: The patient appeared well nourished and normally developed. Vital signs as documented. HEAD: No signs of head trauma.obese EYES: Pupils are equal. Extraocular motions intact. EARS: Hearing grossly intact. MOUTH: Oropharynx is normal. NECK: No adenopathy, no JVD. CHEST: Chest with clear breath sounds bilaterally. No wheezes, rales, or rhonchi. CARDIAC: Regular rate and rhythm. S1 and S2, without murmurs, gallops, or rubs. VASCULAR: No Edema. Peripheral pulses normal and equal in all extremities. ABDOMEN: Soft, without detectable tenderness. No sign of distention. No rebound or guarding, and no masses palpated. Bowel Sounds normal. : Suprapubic catheter in place MUSCULOSKELETAL: Good range of motion of all major joints. Extremities without clubbing, cyanosis or edema. 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 No focal sensory or strength deficits. Speech normal. Follows commands. PSYCHIATRIC: Mood normal. SKIN:multiple caluses in the MCP joints - Constitutional Vitals: Temp Pulse Resp BP Pulse Ox 98.1 F 65 19 123/62 97 12/13/17 05:31 12/13/17 05:31 12/13/17 05:31 12/13/17 05:31 12/13/17 05:31 Plan Activity: advance as tolerated, fall precautions Diet: low salt, diabetic Special Instructions: record daily weights, record daily BP diary, record blood sugar diary, smoking cessation, home health RN Follow up with: PRIMARY CARE, [Referring] - 3-5 Days ALYCIA LAUREN MD [Staff Physician] - 7 Days Prescriptions: Ciprofloxacin HCl [Ciprofloxacin TAB] 500 mg PO Q12H #10 tab oxyCODONE /ACETAMINOPHEN [Percocet 5/325] 1 tab PO Q6HR PRN #20 tablet PRN Reason: Pain
[2017-12-13 08:45] LABS: Mean Corpuscular Hemoglobin 26 pg (28-32)
[2017-12-13] MEDS: FEOSOL PO SCH (09:10)
[2017-12-13] MEDS: PLAVIX PO SCH (09:10)
[2017-12-13] MEDS: NEURONTIN PO SCH ×2 (09:10→13:52)
[2017-12-13] MEDS: COZAAR PO SCH (09:10)
[2017-12-13] MEDS: COREG PO SCH (09:11)
[2017-12-13] MEDS: HALFPRIN EC PO SCH (09:11)
[2017-12-13] MEDS: ZYLOPRIM PO SCH (09:11)
[2017-12-13] MEDS: LASIX PO SCH (09:11)
[2017-12-13] MEDS: HCTZ PO SCH (09:11)
[2017-12-13] MEDS: HumaLOG SUB-Q SCH ×2 (09:12→13:51)
[2017-12-13] MEDS: HumuLIN R SUB-Q SCH ×2 (09:12→13:51)
[2017-12-13 09:14] LABS: BUN/Creatinine Ratio 23; Blood Urea Nitrogen 25 mg/dL (9-20); Calcium 8.9 mg/dL (8.4-10.2); Hemolysis Index 0
[2017-12-13] MEDS: VANCOMYCIN 2,000 MG in NACL 0.9% 500 ML 500 ML IV SCH (13:52)
[2017-12-13 17:13] VITALS: BP 157/53
== END 2017-12-13 17:15 | disposition home health service (06) | DRG 853 ==
LOC: ED 08:26 → 3A 13:51
PROVIDERS: ADMIT Internal Medicine; ATTEND Internal Medicine
PROC: 0TBC8ZZ Excision of Bladder Neck, Via Natural or Artificial Opening Endoscopic (ICD-10-PCS; principal; 2017-12-11)
PROC: BT141ZZ Fluoroscopy of Kidneys, Ureters and Bladder using Low Osmolar Contrast (ICD-10-PCS; 2017-12-11)
PROC: 0TCB8ZZ Extirpation of Matter from Bladder, Via Natural or Artificial Opening Endoscopic (ICD-10-PCS; 2017-12-11)
DX: A41.9 Sepsis, unspecified organism (principal); N17.0 Acute kidney failure with tubular necrosis; E43 Unspecified severe protein-calorie malnutrition; N30.01 Acute cystitis with hematuria; I25.10 Atherosclerotic heart disease of native coronary artery without angina pectoris; E78.2 Mixed hyperlipidemia; E66.9 Obesity, unspecified; E11.42 Type 2 diabetes mellitus with diabetic polyneuropathy; M10.9 Gout, unspecified; C67.5 Malignant neoplasm of bladder neck; G47.30 Sleep apnea, unspecified; Z87.891 Personal history of nicotine dependence; Z68.35 Body mass index [BMI] 35.0-35.9, adult; Z79.899 Other long term (current) drug therapy; Z79.4 Long term (current) use of insulin; Z79.82 Long term (current) use of aspirin
CPT/HCPCS: 36415; 71045; 74176; 74420; 80048; 80053; 81001; 82040; 82140; 82962; 83036; 83735; 85025; 85027; 85610; 85730; 87040; 87086; 88305; 88331; 96374; 96375; A4217; A9270-GY; C1758; J0696; J1170; J1815; J1940; J2270; J2405; J2543; J2704; J3010; J3370; J3475; J7030; J7040; Q9967

== ENCOUNTER 2017-12-22 23:30 | Inpatient (IN) | payer MEDICARE ==
[2017-12-23] MEDS ORDERED: NACL 0.9% 1000 ML 500 ML IV ONE ×2 (00:28→00:58)
[2017-12-23 00:55] LABS: Basophils # (Auto) 0.1 K/mm3 (0.0-0.1); Basophils % (Auto) 0.8 % (0.0-1.8); Eosinophils # (Auto) 0.2 K/mm3 (0.0-0.4); Hematocrit 31.1 % (35.5-45.6); Hemoglobin 10.5 gm/dl (11.8-15.2); Lymphocytes # (Auto) 3.2 K/mm3 (1.2-5.4); Lymphocytes % (Auto) 25.8 % (13.4-35.0); Mean Corpuscular HGB Conc 34 % (32-34); Mean Corpuscular Hemoglobin 26 pg (28-32); Mean Corpuscular Volume 78 fl (84-94); Monocytes # (Auto) 1.1 K/mm3 (0.0-0.8); Monocytes % (Auto) 8.8 % (0.0-7.3); Platelet Count 349 K/mm3 (140-440); Red Cell Distribution Width 16.9 % (13.2-15.2)
[2017-12-23] MEDS ORDERED: MORPHINE IV ONE (00:58)
[2017-12-23] MEDS ORDERED: ZOFRAN ODT PO ONE (00:59)
[2017-12-23 01:02] LABS: Amorphous Crystals,Urine 3+; Bacteria,Urine 4+ /HPF (Negative); Bilirubin,Urine NEG (Negative); Blood,Urine LG (Negative); Color,Urine Amber (Yellow); Hyaline Casts,Urine 58 /LPF; Mucus,Urine FEW /HPF; RBC,Urine > 182.0 /HPF (0.0-6.0); Urobilinogen,Urine < 2.0 mg/dL (<2.0)
[2017-12-23 01:15] LABS: Albumin 3.7 g/dL (3.9-5); Calcium 9.5 mg/dL (8.4-10.2)
[2017-12-23] MEDS ORDERED: ROCEPHIN/NS 1 GM/50 ML 1 GM/50 ML BAG IV ONE (01:29)
[2017-12-23 01:46] LABS: Chol/HDL Ratio 4.53 %
--- NOTE | 2017-12-23 02:07 | Cat Scan Report ---
FINAL REPORT PROCEDURE: CT ABDOMEN PELVIS WO CON TECHNIQUE: Computerized axial tomography of the abdomen and pelvis was performed without intravenous contrast. This study is performed without intravascular contrast material and its sensitivity for abdominal and pelvic pathology, including neoplasms, inflammation, abscess, free fluid, thrombosis, arterial dissection and infarction, is reduced compared with a contrast enhanced study. HISTORY: Pain COMPARISON: No prior studies are available for comparison. FINDINGS: Visualized lower thorax: No significant abnormality. Liver: Normal size and attenuation. Spleen: Normal size and attenuation. Gallbladder and biliary system: There are stones identified within the gallbladder. No dilatation of the biliary ductal system.. Pancreas: Normal. Adrenals: Normal. Kidneys: Normal. GI tract: No obstruction. No ileus or enteritis. The cecum, appendix and colon are normal.. Lymph nodes and mesentery: Normal. Vasculature: Normal. Bladder: There is a Hagan catheter within the urinary bladder.. Reproductive organs: Normal. Peritoneum: No free fluid. Musculoskeletal structures: Significant degenerative changes and degenerative disc changes of the lumbar spine. No acute osseous abnormality.. Other: None. IMPRESSION: There is no evidence of intestinal or urinary tract obstruction. No ileus or enteritis. The appendix is normal. There is advanced lumbar spondylosis and degenerative disc changes. There is a Hagan catheter within the urinary bladder. Cholelithiasis..
--- NOTE | 2017-12-23 02:25 | Emergency Department Report ---
ED Abdominal Pain HPI - General Chief Complaint: Urogenital-Male Stated Complaint: URINARY RETENTION Time Seen by Provider: 12/23/17 00:27 Source: patient Mode of arrival: Stretcher Limitations: No Limitations - History of Present Illness Severity scale (0 -10): 6 - Related Data Home Medications Medication Instructions Recorded Confirmed Last Taken Allopurinol 300 mg PO DAILY 12/10/17 12/10/17 Unknown Aspirin [Aspir-Low] 81 mg PO DAILY 12/10/17 12/10/17 12/10/17 AtorvaSTATin [Lipitor] 80 mg PO DAILY 12/10/17 12/10/17 Unknown Carvedilol [Coreg] 12.5 mg PO BID 12/10/17 12/10/17 Unknown Clopidogrel [Plavix] 75 mg PO BID 12/10/17 12/10/17 Unknown Ferrous Sulfate [Iron] 325 mg PO BID 12/10/17 12/10/17 Unknown Furosemide [Lasix TAB] 40 mg PO DAILY 12/10/17 12/10/17 Unknown Gabapentin [Neurontin] 600 mg PO TID 12/10/17 12/10/17 Unknown Humulin R U-500 Kwikpen 50 units SUB-Q AC 12/10/17 12/10/17 Unknown Insulin Glargine,Hum.rec.anlog 10 units SUB-Q QHS 12/10/17 12/10/17 Unknown [Lantus] Insulin Regular, Human [HumuLIN R] 50 units SUB-Q AC 12/10/17 12/10/17 Unknown Losartan/Hydrochlorothiazide 1 tab PO DAILY 12/10/17 12/10/17 Unknown [Losartan-Hctz 100-25 mg Tab] Nitroglycerin [Nitrostat] 0.4 mg SL Q5M PRN 12/10/17 12/10/17 Unknown Nortriptyline [Pamelor] 50 mg PO QHS 12/10/17 12/10/17 Unknown Mancel[place]-3 Acid Ethyl Esters [Lovaza] 1 gram PO BID 12/10/17 12/10/17 Unknown Sennosides [Senna] 2 tab PO BID PRN 12/10/17 12/10/17 Unknown True Metrix Glucose Test Strip 4 strip QID 12/10/17 12/10/17 Unknown Previous Rx's Medication Instructions Recorded Last Taken Type Ciprofloxacin HCl [Ciprofloxacin 500 mg PO Q12H #10 tab 12/13/17 Unknown Rx TAB] oxyCODONE /ACETAMINOPHEN [Percocet 1 tab PO Q6HR PRN #20 tablet 12/13/17 Unknown Rx 5/325] Allergies Allergy/AdvReac Type Severity Reaction Status Date / Time No Known Allergies Allergy Unverified 12/10/17 09:01 ED Review of Systems ROS: Stated complaint: URINARY RETENTION Other details as noted in HPI ED Past Medical Hx - Past Medical History Previous Medical History?: Yes Hx Hypertension: Yes Hx Heart Attack/AMI: No Hx Congestive Heart Failure: No Hx Diabetes: Yes Hx Renal Disease: No Hx Sickle Cell Disease: No Hx Asthma: No Hx COPD: No Additional medical history: "enlarged heart," neuropathy - Surgical History Past Surgical History?: Yes Hx Pacemaker: No Additional Surgical History: bilateral feet surgery with bone removal; right index finger amputation; 2nd left toe ampuation - Social History Smoking Status: Never Smoker Substance Use Type: None - Medications Home Medications: Home Medications Medication Instructions Recorded Confirmed Last Taken Type Allopurinol 300 mg PO DAILY 12/10/17 12/10/17 Unknown History Aspirin [Aspir-Low] 81 mg PO DAILY 12/10/17 12/10/17 12/10/17 History AtorvaSTATin [Lipitor] 80 mg PO DAILY 12/10/17 12/10/17 Unknown History Carvedilol [Coreg] 12.5 mg PO BID 12/10/17 12/10/17 Unknown History Clopidogrel [Plavix] 75 mg PO BID 12/10/17 12/10/17 Unknown History Ferrous Sulfate [Iron] 325 mg PO BID 12/10/17 12/10/17 Unknown History Furosemide [Lasix TAB] 40 mg PO DAILY 12/10/17 12/10/17 Unknown History Gabapentin [Neurontin] 600 mg PO TID 12/10/17 12/10/17 Unknown History Humulin R U-500 Kwikpen 50 units SUB-Q AC 12/10/17 12/10/17 Unknown History Insulin Glargine,Hum.rec.anlog 10 units SUB-Q QHS 12/10/17 12/10/17 Unknown History [Lantus] Insulin Regular, Human [HumuLIN R] 50 units SUB-Q AC 12/10/17 12/10/17 Unknown History Losartan/Hydrochlorothiazide 1 tab PO DAILY 12/10/17 12/10/17 Unknown History [Losartan-Hctz 100-25 mg Tab] Nitroglycerin [Nitrostat] 0.4 mg SL Q5M PRN 12/10/17 12/10/17 Unknown History Nortriptyline [Pamelor] 50 mg PO QHS 12/10/17 12/10/17 Unknown History Mancelona-3 Acid Ethyl Esters [Lovaza] 1 gram PO BID 12/10/17 12/10/17 Unknown History Sennosides [Senna] 2 tab PO BID PRN 12/10/17 12/10/17 Unknown History True Metrix Glucose Test Strip 4 strip QID 12/10/17 12/10/17 Unknown History Ciprofloxacin HCl [Ciprofloxacin 500 mg PO Q12H #10 tab 12/13/17 Unknown Rx TAB] oxyCODONE /ACETAMINOPHEN [Percocet 1 tab PO Q6HR PRN #20 tablet 12/13/17 Unknown Rx 5/325] ED Physical Exam - General Limitations: No Limitations ED Course Vital Signs 12/22/17 12/23/17 23:51 01:34 Temperature 98.1 F Pulse Rate 85 Respiratory 18 18 Rate Blood Pressure 97/51 O2 Sat by Pulse 98 Oximetry ED Medical Decision Making - Lab Data Result diagrams: 12/23/17 00:39 12/23/17 00:39 Critical care attestation.: If time is entered above; I have spent that time in minutes in the direct care of this critically ill patient, excluding procedure time. ED Disposition Clinical Impression: Elevated troponin Sepsis Qualifiers: Sepsis type: sepsis due to unspecified organism Qualified Code(s): A41.9 - Sepsis, unspecified organism UTI (urinary tract infection) Qualifiers: Urinary tract infection type: site unspecified Hematuria presence: with hematuria Qualified Code(s): N39.0 - Urinary tract infection, site not specified ; R31.9 - Hematuria, unspecified Abdominal pain Qualifiers: Abdominal location: unspecified location Qualified Code(s): R10.9 - Unspecified abdominal pain Acute renal failure Qualifiers: Acute renal failure type: unspecified Qualified Code(s): N17.9 - Acute kidney failure, unspecified Disposition: OP ADMIT IP TO THIS HOSP Is pt being admited?: Yes Condition: Stable Referrals: [facility] [Other] - 3-5 Days Time of Disposition: 02:25
[2017-12-23] MEDS ORDERED: D50W (25GM) Syringe IV PRN (03:43)
[2017-12-23] MEDS ORDERED: ZOFRAN IV PRN (03:48)
[2017-12-23] MEDS ORDERED: TYLENOL PO PRN (03:48)
[2017-12-23] MEDS ORDERED: NACL 0.9% 1000 ML 1,000 ML IV SCH ×2 (04:00→13:00)
[2017-12-23] MEDS ORDERED: VANCOMYCIN PHARMACY TO DOSE IV SCH (04:00)
[2017-12-23] MEDS ORDERED: VANCOMYCIN 2,000 MG in NACL 0.9% 500 ML 500 ML IV ONE (04:00)
[2017-12-23] MEDS ORDERED: D50W (25GM) Syringe IV ONE ×2 (04:40→04:47)
--- NOTE | 2017-12-23 05:50 | History and Physical Report ---
CHIEF COMPLAINT: Urinary retention. HISTORY OF PRESENT ILLNESS: The patient is a 62-year-old male who had recent treatment procedure done by the urologist while being treated for bladder cancer and the patient developed urinary retention in the last 24-36 hours and presented for evaluation. There was also complaint of lower abdominal pain especially in the suprapubic area. He has no history of fever, no history of chills, no history of nausea or vomiting. There is also no history of diarrhea. The patient was evaluated and presented for admission. PAST MEDICAL HISTORY: Pertinent for hypertension, diabetes mellitus, neuropathy. Also, the patient has past history of bladder cancer. PAST SURGICAL HISTORY: Pertinent for bilateral feet surgery, right index finger amputation, second left toe amputation. FAMILY HISTORY: Noncontributory. SOCIAL HISTORY: The patient does not smoke, does not drink alcohol and does not use illicit drugs. MEDICATIONS: The patient is on the following medications: Aspirin 81 mg by mouth daily, atorvastatin (Lipitor) 80 mg by mouth daily, allopurinol 300 mg by mouth daily, carvedilol 12.5 mg by mouth twice daily, Plavix 75 mg by mouth daily, ferrous sulfate 325 mg by mouth twice daily, Lasix 40 mg by mouth daily, Neurontin 600 mg by mouth 3 times daily, Humulin R U-500 50 units subcutaneous q.a.c., Lantus insulin 10 units subcutaneous at bedtime. Also, the patient is on Humulin R 50 units subcutaneous a.c. and losartan/hydrochlorothiazide 100/25 mg 1 by mouth daily, Nitrostat 0.4 mg sublingual every 5 minutes as needed for chest pain, nortriptyline 50 mg by mouth at bedtime, omega 3 fatty acid (Lovaza) 1 gram p.o. b.i.d., sennosides (Senna) 2 tablets by mouth twice daily, True Metrix glucose test strips, ciprofloxacin 500 mg by mouth every 12 hours, Percocet 5/325 mg 1 by mouth every 6 hours as needed for pain. ALLERGIES: There are no known drug allergies. REVIEW OF SYSTEMS: CONSTITUTIONAL: There is no fever, no chills, no diaphoresis. HEENT: There is no headache or sore throat. CARDIOVASCULAR: There is no chest pain or orthopnea. RESPIRATORY: There is no shortness of breath or cough. GASTROINTESTINAL: Abdominal pain present. There is no nausea, no vomiting, no diarrhea or constipation. NEUROLOGICAL: There is no numbness, no dizziness, no altered mental status. MUSCULOSKELETAL: There is no joint pain or swelling. DERMATOLOGICAL: There is no skin rash or itching. GENITOURINARY: Urinary retention noted. No hematuria, no flank pain. Rest of system review is normal. PHYSICAL EXAMINATION: GENERAL: At the time of exam, the patient was found to be alert, oriented x 3 and not in acute distress. VITAL SIGNS: Shows temperature of 98.1 degrees Fahrenheit, pulse of 85, respiration 18, blood pressure 97/51 and O2 sat of 98% on room air. HEENT: Show pupils to be equal, round, reactive to light and accommodation. Extraocular muscles are intact. NECK: Supple with no JVD or carotid bruit. CARDIOVASCULAR: Shows normal first and second heart sounds with no gallops or murmurs. RESPIRATORY: Show good air entry on both sides of the lungs with no abnormal breath sounds. GASTROINTESTINAL: Shows abdomen to be full, soft, nontender with no organomegaly or rigidity. NEUROLOGICAL: Shows no focal deficit. MUSCULOSKELETAL: Shows no joint swelling or tenderness. DERMATOLOGICAL: Showing no skin rash. GENITOURINARY: Showing no costovertebral angle tenderness. PERTINENT LABORATORY DATA AND IMAGING STUDIES: The patient has CBC done with elevated white count of 12,200 with slightly low hemoglobin of 10.5, low hematocrit of 31.1 with low MCV of 78. CBC differential showed high monocyte count of 8.8% with normal segmented neutrophils. The patient's chemistry showed slightly decreased sodium level of 134 and slightly decreased chloride level of 96.1 with elevated BUN of 33 and elevated creatinine of 2.4. The patient's blood glucose level showed slight decrease in 65. The patient's total CPK showed slight increase of 212 with elevated troponin level of 0.038 with high triglyceride of 246. The patient's urinalysis showed elevated urine WBC of 88 with high urine RBC of 182 and trace urinary leukocyte esterase with 4+ urine bacteria. IMAGING STUDIES: The patient has CT of the abdomen and pelvis done that shows no evidence of intestinal or urinary tract obstruction. There is no ileus or enteritis. The appendix was found to be normal. There is finding of advanced lumbar spondylosis and degenerative disk changes. A Hagan catheter was found within the urinary bladder and there is also finding of cholelithiasis. DIAGNOSES: 1. Abdominal pain. 2. Acute renal failure. 3. Urinary tract infection. 4. Sepsis. 5. Elevated troponin level. PLAN: 1. The patient will be admitted to telemetry. 2. The patient will have cardiac enzymes involving troponin, total CK, CK-MB checked q. 6 hours x 2 more levels. 3. The patient will be on IV Zosyn 3.375 grams q. 8 hours. Also, the patient will be on IV vancomycin with pharmacy to dose. 4. The patient will be on IV morphine 2 mg every 4 hours as needed for pain and IV Zofran 4 mg every 8 hours for nausea and vomiting. 5. The patient will be on Tylenol 650 mg by mouth every 4 hours for fever and headache. He will be on IV normal saline at 125 mL an hour for treatment of sepsis. 6. The patient will have Nephrology consult with Dr. Benny Jasso for acute kidney injury. 7. The patient will be on consistent carbohydrate diet with 2 grams sodium. 8. The patient will be on Accu-Chek a.c. and at bedtime, followed by low-dose sliding scale using subcutaneously regular insulin coverage. 9. The patient's home medications will be reconciled later on started accordingly. JOB# [id number] ELLIN/SARAH WHITTAKER
[2017-12-23 05:55] LABS: Calcium 8.5 mg/dL (8.4-10.2)
[2017-12-23] MEDS ORDERED: ZOSYN/NS 3.375GM/50ML 3.375 GM/50 ML BAG IV SCH (06:00)
[2017-12-23] MEDS ORDERED: ZOSYN/NS 4.5GM/100ML 4.5 GM/100 ML VIAL IV ONE (07:53)
[2017-12-23] MEDS: ZOSYN/NS 4.5GM/100ML 4.5 GM/100 ML VIAL IV SCH ×3 (08:00→21:07)
[2017-12-23] MEDS: HumuLIN R SUB-Q SCH ×4 (09:01→21:21)
--- NOTE | 2017-12-23 11:09 | Consultation ---
History of Present Illness - Reason for Consult Consult date: 12/23/17 acute renal failure - History of Present Illness Mr. Goodson is a 62yo with recent hx of urinary retention, bladder mass who was discharged to home on December 13 w/ manuel catheter. He reports that catheter was removed appx 2 days ago and since removal, he has been unable to urinate. In addition, he reports dizziness with ambulation and occ SOB. He denies N/V/ D. He denies NSAID use. In the ED, patient's SBP was in the 90s. His creatinine had increased from 1.1mg/dL at d/c to 2.4mg/dL. Nephrology consuultation requested for management/evaluation of BRIDGET Past History Past Medical History: other (Hypertension, Type II DM, Hyperlipidemia, CAD, Gout , Bladder mass, Hx of urinary retention) Past Surgical History: Other (R index finger amputation, 2nd left toe amputation ) Social history: other (Former tobacco use) Family history: no significant family history Medications and Allergies Allergies Allergy/AdvReac Type Severity Reaction Status Date / Time No Known Allergies Allergy Unverified 12/10/17 09:01 Home Medications Medication Instructions Recorded Confirmed Last Taken Type Allopurinol 300 mg PO DAILY 12/10/17 12/10/17 Unknown History Aspirin [Aspir-Low] 81 mg PO DAILY 12/10/17 12/10/17 12/10/17 History AtorvaSTATin [Lipitor] 80 mg PO DAILY 12/10/17 12/10/17 Unknown History Carvedilol [Coreg] 12.5 mg PO BID 12/10/17 12/10/17 Unknown History Clopidogrel [Plavix] 75 mg PO BID 12/10/17 12/10/17 Unknown History Ferrous Sulfate [Iron] 325 mg PO BID 12/10/17 12/10/17 Unknown History Furosemide [Lasix TAB] 40 mg PO DAILY 12/10/17 12/10/17 Unknown History Gabapentin [Neurontin] 600 mg PO TID 12/10/17 12/10/17 Unknown History Humulin R U-500 Kwikpen 50 units SUB-Q AC 12/10/17 12/10/17 Unknown History Insulin Glargine,Hum.rec.anlog 10 units SUB-Q QHS 12/10/17 12/10/17 Unknown History [Lantus] Insulin Regular, Human [HumuLIN R] 50 units SUB-Q AC 12/10/17 12/10/17 Unknown History Losartan/Hydrochlorothiazide 1 tab PO DAILY 12/10/17 12/10/17 Unknown History [Losartan-Hctz 100-25 mg Tab] Nitroglycerin [Nitrostat] 0.4 mg SL Q5M PRN 12/10/17 12/10/17 Unknown History Nortriptyline [Pamelor] 50 mg PO QHS 12/10/17 12/10/17 Unknown History Gallant-3 Acid Ethyl Esters [Lovaza] 1 gram PO BID 12/10/17 12/10/17 Unknown History Sennosides [Senna] 2 tab PO BID PRN 12/10/17 12/10/17 Unknown History True Metrix Glucose Test Strip 4 strip QID 12/10/17 12/10/17 Unknown History Ciprofloxacin HCl [Ciprofloxacin 500 mg PO Q12H #10 tab 12/13/17 Unknown Rx TAB] oxyCODONE /ACETAMINOPHEN [Percocet 1 tab PO Q6HR PRN #20 tablet 12/13/17 Unknown Rx 5/325] Active Meds: Active Medications Acetaminophen (Tylenol) 650 mg PO Q4H PRN PRN Reason: Fever >101 Dextrose (D50w (25gm) Syringe) 50 ml IV PRN PRN PRN Reason: Hypoglycemia Last Admin: 12/23/17 04:50 Dose: 50 ml Sodium Chloride (Nacl 0.9% 1000 Ml) 1,000 mls @ 125 mls/hr IV DIRECT HANNAH Piperacillin Sod/Tazobactam Sod (Zosyn/Ns 4.5gm/100ml) 4.5 gm in 100 mls @ 200 mls/hr IV Q8HR HANNAH; Protocol Last Admin: 12/23/17 08:00 Dose: 200 mls/hr Vancomycin HCl 1,750 mg/ (Sodium Chloride) 535 mls @ 333.333 mls/hr IV Q24H HANNAH Insulin Human Regular (Humulin R) 0 units SUB-Q AC HANNAH; Protocol Last Admin: 12/23/17 09:01 Dose: Not Given Insulin Human Regular (Humulin R) 0 units SUB-Q QHS HANNAH; Protocol Morphine Sulfate (Morphine) 2 mg IV Q4H PRN PRN Reason: Pain, Moderate (4-6) Ondansetron HCl (Zofran) 4 mg IV Q8H PRN PRN Reason: Nausea And Vomiting Vancomycin HCl (Vancomycin Pharmacy To Dose) 1 each IV PKCONSULT HANNAH; Protocol Review of Systems All systems: negative Exam - Vital Signs Vital signs: Vital Signs Pulse Resp 99 H 16 12/22/17 23:32 12/22/17 23:32 - General Appearance General appearance: well-developed, well-nourished EENT: ATNC Respiratory: Clear to Ascultation Heart: regular, S1S2 Gastrointestinal: Present: normal. Absent: tenderness, distended Integumentary: warm and dry Neurologic: alert and oriented x3 Musculoskeletal: Present: other (right hand bandaged) Psychiatric: cooperative Results - Lab Results 12/23/17 00:39 12/23/17 05:20 Most recent lab results Calcium 8.5 mg/dL (8.4-10.2) 12/23/17 05:20 Assessment and Plan Impression: * Acute kidney injury secondary to prerenal azotemia in setting of ACEi/ diuretic and hypotension vs urinary retention * Urinary retention * Bladder mass * Hypotension * Type II DM Plan: * Manuel catheter has been reinserted * Agree with holding ACEi, thiazide and loop diuretic * Gentle IVF for hydration * Avoid nephrotoxins * Dose medications for renal function * Strict I/O * Daily labs
[2017-12-23] MEDS: MORPHINE IV PRN ×2 (14:04→21:02)
--- NOTE | 2017-12-23 14:37 | Progress Note ---
Assessment and Plan Assessment and plan: BRIDGET improving. Cr 2.0 from 2.4 on admission. Continue IV fluids Nephrology following Urinary retention. No hydronephrosis on CT Bladder cancer s/p procedure in office of Dr. Smith few days ago Diabetes mellitus type 2. Check fingerstick glucose every 6 hours and at bedtime Lantus QHS Obesity. I counseled him on diet and exercise Full code status. History Interval history: Urinary retention, No fever Hospitalist Physical - Physical exam Narrative exam: Gen:Not in acute distress, obese HEENT:Normocephalic atraumatic,jaundice Neck: Supple, no JVD Lungs:clear to auscultation bilaterally, no rhonchi, no wheeze Heart:S1 and S2 reg, no murmurs, rubs or gallop Abd: Soft, non tender, non distended, normal bowel sounds Ext: No edema, clubbing or cyanosis Neuro:Awake,alert,oriented x 3, no focal signs Psych:normal mood - Constitutional Vitals: Temp Pulse Resp BP Pulse Ox 97.4 F L 65 20 122/54 86 12/23/17 11:34 12/23/17 11:34 12/23/17 14:04 12/23/17 11:34 12/23/17 11:34 Results - Labs CBC & Chem 7: 12/24/17 07:57 12/24/17 07:57 Labs: Laboratory Last Values WBC 12.2 K/mm3 (4.5-11.0) H 12/23/17 00:39 RBC 4.00 M/mm3 (3.65-5.03) 12/23/17 00:39 Hgb 10.5 gm/dl (11.8-15.2) L 12/23/17 00:39 Hct 31.1 % (35.5-45.6) L 12/23/17 00:39 MCV 78 fl (84-94) L 12/23/17 00:39 MCH 26 pg (28-32) L 12/23/17 00:39 MCHC 34 % (32-34) 12/23/17 00:39 RDW 16.9 % (13.2-15.2) H 12/23/17 00:39 Plt Count 349 K/mm3 (140-440) 12/23/17 00:39 Lymph % (Auto) 25.8 % (13.4-35.0) 12/23/17 00:39 Robertson % (Auto) 8.8 % (0.0-7.3) H 12/23/17 00:39 Eos % (Auto) 2.0 % (0.0-4.3) 12/23/17 00:39 Baso % (Auto) 0.8 % (0.0-1.8) 12/23/17 00:39 Lymph # 3.2 K/mm3 (1.2-5.4) 12/23/17 00:39 Robertson # 1.1 K/mm3 (0.0-0.8) H 12/23/17 00:39 Eos # 0.2 K/mm3 (0.0-0.4) 12/23/17 00:39 Baso # 0.1 K/mm3 (0.0-0.1) 12/23/17 00:39 Seg Neutrophils % 62.6 % (40.0-70.0) 12/23/17 00:39 Seg Neutrophils # 7.6 K/mm3 (1.8-7.7) 12/23/17 00:39 Sodium 134 mmol/L (137-145) L 12/23/17 05:20 Potassium 4.1 mmol/L (3.6-5.0) 12/23/17 05:20 Chloride 99.2 mmol/L (98-107) 12/23/17 05:20 Carbon Dioxide 24 mmol/L (22-30) 12/23/17 05:20 Anion Gap 15 mmol/L 12/23/17 05:20 BUN 32 mg/dL (9-20) H 12/23/17 05:20 Creatinine 2.0 mg/dL (0.8-1.5) H 12/23/17 05:20 Estimated GFR 41 ml/min 12/23/17 05:20 BUN/Creatinine Ratio 16 % 12/23/17 05:20 Glucose 116 mg/dL (75-100) H 12/23/17 05:20 POC Glucose 136 (70-105) H 12/23/17 11:46 Lactic Acid 1.60 mmol/L (0.7-2.0) 12/23/17 05:20 Calcium 8.5 mg/dL (8.4-10.2) 12/23/17 05:20 Total Bilirubin 0.30 mg/dL (0.1-1.2) 12/23/17 00:39 AST 30 units/L (5-40) 12/23/17 00:39 ALT 24 units/L (7-56) 12/23/17 00:39 Alkaline Phosphatase 91 units/L (35-129) 12/23/17 00:39 Total Creatine Kinase 199 units/L (55-170) H 12/23/17 05:20 CK-MB (CK-2) 3.0 ng/mL (0.0-4.0) 12/23/17 05:20 CK-MB (CK-2) Rel Index 1.5 (0-4) 12/23/17 05:20 Troponin T 0.018 ng/mL (0.00-0.029) 12/23/17 05:20 Total Protein 7.6 g/dL (6.3-8.2) 12/23/17 00:39 Albumin 3.7 g/dL (3.9-5) L 12/23/17 00:39 Albumin/Globulin Ratio 0.9 % 12/23/17 00:39 Triglycerides 246 mg/dL (2-149) H 12/23/17 00:39 Cholesterol 145 mg/dL (50-199) 12/23/17 00:39 LDL Cholesterol Direct 78 mg/dL (50-130) 12/23/17 00:39 HDL Cholesterol 32 mg/dL (40-59) L 12/23/17 00:39 Cholesterol/HDL Ratio 4.53 % 12/23/17 00:39 Lipase 13 units/L (13-60) 12/23/17 00:39 Urine Color Renae (Yellow) 12/23/17 00:21 Urine Turbidity Cloudy (Clear) 12/23/17 00:21 Urine pH 5.0 (5.0-7.0) 12/23/17 00:21 Ur Specific [place] 1.019 (1.003-1.030) 12/23/17 00:21 Urine Protein 100 mg/dl mg/dL (Negative) 12/23/17 00:21 Urine Glucose (UA) Neg mg/dL (Negative) 12/23/17 00:21 Urine Ketones Neg mg/dL (Negative) 12/23/17 00:21 Urine Blood Lg (Negative) 12/23/17 00:21 Urine Nitrite Neg (Negative) 12/23/17 00:21 Urine Bilirubin Neg (Negative) 12/23/17 00:21 Urine Urobilinogen < 2.0 mg/dL (<2.0) 12/23/17 00:21 Ur Leukocyte Esterase Tr (Negative) 12/23/17 00:21 Urine WBC (Auto) 88.0 /HPF (0.0-6.0) H 12/23/17 00:21 Urine RBC (Auto) > 182.0 /HPF (0.0-6.0) 12/23/17 00:21 Urine Bacteria (Auto) 4+ /HPF (Negative) 12/23/17 00:21 Urine WBC Clumps 3+ /HPF 12/23/17 00:21 Amorphous Crystals 3+ 12/23/17 00:21 Hyaline Casts 58 /LPF 12/23/17 00:21 Urine Mucus Few /HPF 12/23/17 00:21
[2017-12-23 15:02] LABS: Creatine Kinase MB 3.5 ng/mL (0.0-4.0)
[2017-12-23] MEDS ORDERED: LANTUS SUB-Q SCH (22:00)
[2017-12-24] MEDS ORDERED: VANCOMYCIN 1,750 MG in NACL 0.9% 500 ML 500 ML IV SCH (04:00)
[2017-12-24] MEDS: ZOSYN/NS 4.5GM/100ML 4.5 GM/100 ML VIAL IV SCH ×3 (05:06→21:55)
[2017-12-24] MEDS: HumuLIN R SUB-Q SCH ×4 (07:30→22:10)
[2017-12-24 08:41] LABS: Hematocrit 30.7 % (35.5-45.6); Hemoglobin 10.5 gm/dl (11.8-15.2); Mean Corpuscular HGB Conc 34 % (32-34); Mean Corpuscular Hemoglobin 27 pg (28-32); Mean Corpuscular Volume 78 fl (84-94); Platelet Count 296 K/mm3 (140-440); Red Blood Count 3.96 M/mm3 (3.65-5.03); Red Cell Distribution Width 16.4 % (13.2-15.2)
[2017-12-24 08:45] LABS: BUN/Creatinine Ratio 19; Blood Urea Nitrogen 25 mg/dL (9-20); Calcium 8.7 mg/dL (8.4-10.2); Hemolysis Index 0
[2017-12-24] MEDS ORDERED: KIONEX PO ONE ×2 (09:27→14:00)
--- NOTE | 2017-12-24 10:45 | Progress Note ---
Assessment and Plan Impression: * Acute kidney injury secondary to prerenal azotemia in setting of ACEi/ diuretic and hypotension vs urinary retention * Recurrent urinary retention - now resolved w/ manuel --UOP 1100 upon insertion of manuel in ED * Bladder mass * Hypotension - resolved * Type II DM * Hx of hypertension Plan: * Renal function improved; BRIDGET resolved * Continue holding ACEi, thiazide and loop diuretic * Can start on Amlodipine if BP is elevated * Will d/c IVF; encourage po hydration * Note order for kayexelate * Recommend home with manuel again. Urology input re: recurrent urinary retention * Glycemic control per primary team * Avoid nephrotoxins * Dose medications for renal function * Strict I/O * Daily labs Subjective Date of service: 12/24/17 Interval history: Patient has no complaints. Objective - Vital Signs Vital signs: Vital Signs - 12hr 12/23/17 12/24/17 12/24/17 23:40 05:19 06:00 Temperature 98.1 F 98.3 F Pulse Rate 70 79 92 H Respiratory 18 18 Rate Blood Pressure 144/63 145/65 O2 Sat by Pulse 99 98 Oximetry 12/24/17 07:34 Temperature 97.4 F L Pulse Rate 69 Respiratory 18 Rate Blood Pressure 148/58 O2 Sat by Pulse 98 Oximetry - General Appearance General appearance: well-developed, well-nourished EENT: ATNC Respiratory: Present: Clear to Ascultation Cardiology: regular, S1S2 Gastrointestinal: normal, no tenderness, no distended Integumentary: no rash, warm and dry Neurologic: no focal deficit, alert and oriented x3 Musculoskeletal: other (no edema) Psychiatric: cooperative - Lab 12/24/17 07:57 12/24/17 07:57 Most recent lab results Calcium 8.7 mg/dL (8.4-10.2) 12/24/17 07:57
--- NOTE | 2017-12-24 11:07 | Progress Note ---
Assessment and Plan Assessment and plan: BRIDGET improving. Cr 1.3 from 2.4 on admission. Continue IV fluids Nephrology following Urinary retention. No hydronephrosis on CT Bladder cancer s/p procedure in office of Dr. Smith few days ago Diabetes mellitus type 2. Check fingerstick glucose every 6 hours and at bedtime Lantus QHS Hyperkalemia. Give kayexalate and recheck Obesity. I counseled him on diet and exercise Full code status. History Interval history: Presented with Urinary retention, manuel placed, No abdominal pain No fever Hospitalist Physical - Physical exam Narrative exam: Gen:Not in acute distress, obese HEENT:Normocephalic atraumatic,jaundice Neck: Supple, no JVD Lungs:clear to auscultation bilaterally, no rhonchi, no wheeze Heart:S1 and S2 reg, no murmurs, rubs or gallop Abd: Soft, non tender, non distended, normal bowel sounds Ext: No edema, clubbing or cyanosis Neuro:Awake,alert,oriented x 3, no focal signs Psych:normal mood - Constitutional Vitals: Temp Pulse Resp BP Pulse Ox 97.4 F L 69 18 148/58 98 12/24/17 07:34 12/24/17 07:34 12/24/17 07:34 12/24/17 07:34 12/24/17 07:34 Results - Labs CBC & Chem 7: 12/24/17 07:57 12/24/17 07:57 Labs: Laboratory Last Values WBC 9.4 K/mm3 (4.5-11.0) 12/24/17 07:57 RBC 3.96 M/mm3 (3.65-5.03) 12/24/17 07:57 Hgb 10.5 gm/dl (11.8-15.2) L 12/24/17 07:57 Hct 30.7 % (35.5-45.6) L 12/24/17 07:57 MCV 78 fl (84-94) L 12/24/17 07:57 MCH 27 pg (28-32) L 12/24/17 07:57 MCHC 34 % (32-34) 12/24/17 07:57 RDW 16.4 % (13.2-15.2) H 12/24/17 07:57 Plt Count 296 K/mm3 (140-440) 12/24/17 07:57 Lymph % (Auto) 25.8 % (13.4-35.0) 12/23/17 00:39 [place] % (Auto) 8.8 % (0.0-7.3) H 12/23/17 00:39 Eos % (Auto) 2.0 % (0.0-4.3) 12/23/17 00:39 Baso % (Auto) 0.8 % (0.0-1.8) 12/23/17 00:39 Lymph # 3.2 K/mm3 (1.2-5.4) 12/23/17 00:39 [place] # 1.1 K/mm3 (0.0-0.8) H 12/23/17 00:39 Eos # 0.2 K/mm3 (0.0-0.4) 12/23/17 00:39 Baso # 0.1 K/mm3 (0.0-0.1) 12/23/17 00:39 Seg Neutrophils % 62.6 % (40.0-70.0) 12/23/17 00:39 Seg Neutrophils # 7.6 K/mm3 (1.8-7.7) 12/23/17 00:39 Sodium 137 mmol/L (137-145) 12/24/17 07:57 Potassium 5.1 mmol/L (3.6-5.0) H D 12/24/17 07:57 Chloride 98.0 mmol/L (98-107) 12/24/17 07:57 Carbon Dioxide 23 mmol/L (22-30) 12/24/17 07:57 Anion Gap 21 mmol/L 12/24/17 07:57 BUN 25 mg/dL (9-20) H 12/24/17 07:57 Creatinine 1.3 mg/dL (0.8-1.5) 12/24/17 07:57 Estimated GFR > 60 ml/min 12/24/17 07:57 BUN/Creatinine Ratio 19 % 12/24/17 07:57 Glucose 224 mg/dL (75-100) H 12/24/17 07:57 POC Glucose 240 (70-105) H 12/24/17 05:31 Lactic Acid 1.60 mmol/L (0.7-2.0) 12/23/17 05:20 Calcium 8.7 mg/dL (8.4-10.2) 12/24/17 07:57 Total Bilirubin 0.30 mg/dL (0.1-1.2) 12/23/17 00:39 AST 30 units/L (5-40) 12/23/17 00:39 ALT 24 units/L (7-56) 12/23/17 00:39 Alkaline Phosphatase 91 units/L (35-129) 12/23/17 00:39 Total Creatine Kinase 226 units/L (55-170) H 12/23/17 14:08 CK-MB (CK-2) 3.5 ng/mL (0.0-4.0) 12/23/17 14:08 CK-MB (CK-2) Rel Index 1.5 (0-4) 12/23/17 14:08 Troponin T < 0.010 ng/mL (0.00-0.029) 12/23/17 14:08 Total Protein 7.6 g/dL (6.3-8.2) 12/23/17 00:39 Albumin 3.7 g/dL (3.9-5) L 12/23/17 00:39 Albumin/Globulin Ratio 0.9 % 12/23/17 00:39 Triglycerides 246 mg/dL (2-149) H 12/23/17 00:39 Cholesterol 145 mg/dL (50-199) 12/23/17 00:39 LDL Cholesterol Direct 78 mg/dL (50-130) 12/23/17 00:39 HDL Cholesterol 32 mg/dL (40-59) L 12/23/17 00:39 Cholesterol/HDL Ratio 4.53 % 12/23/17 00:39 Lipase 13 units/L (13-60) 12/23/17 00:39 Urine Color Renae (Yellow) 12/23/17 00:21 Urine Turbidity Cloudy (Clear) 12/23/17 00:21 Urine pH 5.0 (5.0-7.0) 12/23/17 00:21 Ur Specific [place] 1.019 (1.003-1.030) 12/23/17 00:21 Urine Protein 100 mg/dl mg/dL (Negative) 12/23/17 00:21 Urine Glucose (UA) Neg mg/dL (Negative) 12/23/17 00:21 Urine Ketones Neg mg/dL (Negative) 12/23/17 00:21 Urine Blood Lg (Negative) 12/23/17 00:21 Urine Nitrite Neg (Negative) 12/23/17 00:21 Urine Bilirubin Neg (Negative) 12/23/17 00:21 Urine Urobilinogen < 2.0 mg/dL (<2.0) 12/23/17 00:21 Ur Leukocyte Esterase Tr (Negative) 12/23/17 00: Urine WBC (Auto) 88.0 /HPF (0.0-6.0) H 12/23/17 00: Urine RBC (Auto) > 182.0 /HPF (0.0-6.0) 12/23/17 00:21 Urine Bacteria (Auto) 4+ /HPF (Negative) 12/23/17 00:21 Urine WBC Clumps 3+ /HPF 12/23/17 00:21 Amorphous Crystals 3+ 12/23/17 00:21 Hyaline Casts 58 /LPF 12/23/17 00:21 Urine Mucus Few /HPF 12/23/17 00:21
[2017-12-24] MEDS ORDERED: LANTUS SUB-Q SCH (22:00)
[2017-12-24] MEDS: MORPHINE IV PRN (22:11)
[2017-12-25] MEDS: ZOSYN/NS 4.5GM/100ML 4.5 GM/100 ML VIAL IV SCH ×2 (05:03→14:05)
[2017-12-25] MEDS: MORPHINE IV PRN ×2 (05:04→12:50)
[2017-12-25 06:45] LABS: Hematocrit 31.4 % (35.5-45.6); Mean Corpuscular HGB Conc 32 % (32-34); Mean Corpuscular Volume 78 fl (84-94); Platelet Count 329 K/mm3 (140-440); Red Cell Distribution Width 16.3 % (13.2-15.2)
[2017-12-25 06:51] LABS: Mean Corpuscular Hemoglobin 25 pg (28-32)
[2017-12-25 07:09] LABS: BUN/Creatinine Ratio 17; Blood Urea Nitrogen 20 mg/dL (9-20); Calcium 8.8 mg/dL (8.4-10.2); Hemolysis Index 5
[2017-12-25] MEDS: HumuLIN R SUB-Q SCH ×2 (08:34→12:51)
[2017-12-25 08:41] VITALS: BP 153/64
--- NOTE | 2017-12-25 10:51 | Progress Note ---
Assessment and Plan Impression: * Acute kidney injury secondary to prerenal azotemia in setting of ACEi/ diuretic and hypotension vs urinary retention * Recurrent urinary retention - now resolved w/ manuel --UOP 1100 upon insertion of manuel in ED * Bladder mass * Hypotension - resolved * Type II DM * Hx of hypertension Plan: * Renal function improved; BRIDGET resolved * Continue holding ACEi, thiazide and loop diuretic * encourage po hydration * Note order for kayexelate * Recommend home with manuel again. Urology input re: recurrent urinary retention * Glycemic control per primary team * Avoid nephrotoxins * Dose medications for renal function * Strict I/O * Daily labs * ok to dc from renal standpoint Subjective Date of service: 12/25/17 Principal diagnosis: bridget Interval history: resting well in bed today Objective - Exam Narrative Exam: General appearance: well-developed, well-nourished EENT: ATNC Respiratory: Present: Clear to Ascultation Cardiology: regular, S1S2 Gastrointestinal: normal, no tenderness, no distended Integumentary: no rash, warm and dry Neurologic: no focal deficit, alert and oriented x3 Musculoskeletal: other (no edema) Psychiatric: cooperative - Vital Signs Vital signs: Vital Signs - 12hr 12/24/17 12/25/17 12/25/17 23:41 04:25 07:32 Temperature 98.7 F 97.9 F 98.2 F Pulse Rate 70 69 69 Respiratory 20 20 20 Rate Blood Pressure 138/48 135/62 153/64 O2 Sat by Pulse 97 97 98 Oximetry - Lab 12/25/17 05:43 12/25/17 05:43 Most recent lab results Calcium 8.8 mg/dL (8.4-10.2) 12/25/17 05:43
--- NOTE | 2017-12-25 11:56 | Discharge Summary ---
Providers - Providers Date of Admission: 12/23/17 03:31 Date of discharge: 12/25/17 Attending physician: ИВАН FIELDS 12/23/17 06:00 Consult to Physician [CONS] Routine Comment: Consulting Provider: LINDSEY POON Physician Instructions: Reason For Exam: BRIDGET Hospitalization Condition: Fair Disposition: DC-01 TO HOME OR SELFCARE Core Measure Documentation - Palliative Care Palliative Care/ Comfort Measures: Not Applicable - Core Measures Any of the following diagnoses?: none Exam - Constitutional Vitals: Temp Pulse Resp BP Pulse Ox 98.2 F 69 20 153/64 98 12/25/17 07:32 12/25/17 07:32 12/25/17 07:32 12/25/17 07:32 12/25/17 07:32 Plan Activity: no restrictions Diet: low fat, low cholesterol, low salt Additional Instructions: 1.Follow up with PCP in 1 week. 2.Follow up with Dr. Smith in 2-3 days. 3.Home with manuel with leg bag Follow up with: [facility] [Other] - 3-5 Days
--- NOTE | 2017-12-25 16:25 | Query- Renal Failure ---
Deaselene Sal_Rebecca Date:_12/25/2017 Edger Technician/CDS:__Izzy Phone#:__[phone] Exercise your independent professional judgment when responding to query. Questions asked do not imply a particular answer is desired or expected. We greatly appreciate your clarification on this issue. Clinical Documentation States: 62 Year old male was admitted on 12/23/2017 for abdominal pain. THe Hospitalist (Dr. Walker) progress note on 12/24/2017 stated "Assessment and plan: BRIDGET improving. Cr 1.3 from 2.4 on admission. Continue IV fluids Nephrology following." Clinical Findings Show: Creatinine 12/23 (00:39): 2.4 12/23 (05:20) 2.0 12/24 1.3 Please clarify if you mean: Acute Renal Failure with or due to: [ ] Tubular Necrosis [ ] Medullary Necrosis [ ] Vasomotor Nephropathy [ ] Shock Kidney [ ] Tubular Nephrosis [ ] Renal Tubular Stasis [ ] Cortical Necrosis [ ] Acute Renal Failure (unspecified) [ ] Lower Tubular Nephrosis [ ] Other: [ ] Not Applicable Present on Admission: [ ] Yes (Y) [ ] Clinically undeterminable (W) [ ] No (N) Please also document response in your Progress Notes and/or Discharge Summary and indicate if the condition was present on admission. [facility]
== END 2017-12-25 19:35 | disposition home or self-care (01) | DRG 872 ==
LOC: ED 23:30 → 4A 12-23 03:31
PROVIDERS: ADMIT Internal Medicine; ATTEND Internal Medicine
DX: A41.9 Sepsis, unspecified organism (principal); N17.9 Acute kidney failure, unspecified; N39.0 Urinary tract infection, site not specified; E87.5 Hyperkalemia; R33.9 Retention of urine, unspecified; I10 Essential (primary) hypertension; E11.40 Type 2 diabetes mellitus with diabetic neuropathy, unspecified; I25.10 Atherosclerotic heart disease of native coronary artery without angina pectoris; E78.5 Hyperlipidemia, unspecified; M10.9 Gout, unspecified; I95.9 Hypotension, unspecified; T50.2X5A Adverse effect of carbonic-anhydrase inhibitors, benzothiadiazides and other diuretics, initial encounter; E66.9 Obesity, unspecified; Z85.51 Personal history of malignant neoplasm of bladder; Z68.33 Body mass index [BMI] 33.0-33.9, adult; Z79.4 Long term (current) use of insulin; Z89.422 Acquired absence of other left toe(s); Z79.82 Long term (current) use of aspirin; Y92.89 Other specified places as the place of occurrence of the external cause
CPT/HCPCS: 36415; 74176; 80048; 80053; 80061; 81001; 82140; 82550; 82553; 82962; 83690; 84484; 85025; 85027; 87040; 87086; 87116; J0696; J1815; J2270; J2543; J3370; J7030; J7040; Q0162